=== PATIENT | male | born 1935 | race Caucasian/White ===

== ENCOUNTER 2023-05-08 12:18 | Emergency (ER) | payer SELFPAY ==
[2023-05-08 12:42] VITALS: BP 118/59; PULSE 92; RESP 14; TEMP 36.3; O2SAT 96
--- NOTE | 2023-05-08 14:45 | PC.NURSE ---
pt and family approached intake desk and states they do not want to wait any longer. pt made aware to return if they change their mind or have any new or worsening symptoms. pt ambulated out of ED with family without difficulty.
== END 2023-05-08 14:45 | disposition left against medical advice (07) ==
LOC: ANHED 15:10
DX: R20.0 Anesthesia of skin (principal)
CPT/HCPCS: 99199

== ENCOUNTER 2023-08-18 19:35 | Inpatient (IN) | payer MEDICARE, SELFPAY ==
--- NOTE | ~2023-08-18 | CT_ITS ---
EXAMINATION: CT cervical spine wo con DATE: 08/18/2023 21:17 INDICATION: Neck injury. Neck pain. TECHNIQUE: Computed tomography (CT) of the cervical spine was performed without intravenous contrast. Automated exposure control and iterative reconstruction technique were employed. The dose-length pro duct was 194.31 mGy-cm. COMPARISON: Cervical spine radiographs 08/18/2023 FINDINGS: There is mild scarring at the lung apices. There is 11 degrees levoscoliosis of cervical sp ine. Vertebral body heights are normal. There is severely decreased disc height at C3-C4 and moderate ly decreased disc height at C4-C5. There are bridging endplate osteophytes at C2-C3, C5-T1, and T2-T5 , consistent with diffuse idiopathic skeletal hyperostosis (DISH). The following disc levels are spec ifically discussed: C2-C3: There is mild bilateral uncovertebral joint hypertrophy. There is ankylosis of the facet joint s with mild left hypertrophy. There is mild left neural foraminal stenosis. There is no central canal stenosis. C3-C4: There is severe bilateral uncovertebral joint osteoarthritis. There is severe bilateral facet joint osteoarthritis. There is moderate bilateral neural foraminal stenosis. There is mild central ca nal stenosis. C4-C5: There is mild bilateral uncovertebral joint hypertrophy. There is severe bilateral facet joint osteoarthritis. There is mild right and mild left neural foraminal stenosis. There is mild central c anal stenosis. C5-C6: There is mild bilateral uncovertebral joint hypertrophy. There is mild bilateral facet joint h ypertrophy. There is mild bilateral neural foraminal stenosis. There is mild central canal stenosis. C6-C7: There is severe bilateral uncovertebral joint hypertrophy. There is mild bilateral facet joint hypertrophy. There is moderate bilateral neural foraminal stenosis. There is mild central canal sten osis. C7-T1: There is mild left uncovertebral joint hypertrophy. There is mild bilateral facet joint hypert rophy. There is mild bilateral neural foraminal stenosis. There is no central canal stenosis. IMPRESSION: 1. No fracture. 2. Severe cervical spondylosis. 3. DISH. Reviewed, dictated and finalized at location E. NG COILING MACHINE SETTER
--- NOTE | ~2023-08-18 | XR_ITS ---
EXAMINATION: XR knee LT 3V DATE: 08/18/2023 22:34 INDICATION: Left knee pain. Fall. TECHNIQUE: 3 views of left knee were obtained. COMPARISON: None. FINDINGS: Bone alignment is normal. No fracture. There is mild osteoarthritis of medial and patellofe moral compartments. No knee joint effusion. IMPRESSION: 1. Mild left knee osteoarthritis. Reviewed, dictated and finalized at location E. RAM ATTENDANT
--- NOTE | ~2023-08-18 | XR_ITS ---
EXAMINATION: XR chest 1V DATE: 08/18/2023 22:34 INDICATION: Weakness. TECHNIQUE: A single frontal view of the chest was obtained. COMPARISON: None. FINDINGS: There is mild atelectasis at left lung base. No pleural effusion or pneumothorax. The heart size is normal. IMPRESSION: 1. Mild atelectasis at left lung base. Reviewed, dictated and finalized at location E. ING INSPECTOR
--- NOTE | ~2023-08-18 | CT_ITS ---
EXAMINATION: CT brain wo con DATE: 08/18/2023 21:12 INDICATION: Head injury. TECHNIQUE: Computed tomography (CT) of the head was performed without intravenous contrast. The mA wa s adjusted according to patient size. Iterative reconstruction technique was employed. The dose-lengt h product was 605.33 mGy-cm. COMPARISON: None FINDINGS: There is no intracranial hemorrhage, acute infarction, or abnormal intracranial mass lesion . There are scattered areas of low attenuation in the cerebral white matter, which is within normal l imits for the patient's age. The ventricles are normal in size. There is mild mucosal thickening in t he ethmoid sinuses. There are likely changes of ocular lens replacement surgeries. The mastoid air ce lls are normal. IMPRESSION: 1. Normal aging brain. Reviewed, dictated and finalized at location E. OLOGY TECHNICIAN IMPRESSION: 1. Normal aging brain.
--- NOTE | ~2023-08-18 | XR_ITS ---
EXAMINATION: XR knee RT 3V DATE: 08/18/2023 22:34 INDICATION: Right knee pain. Fall. TECHNIQUE: 3 views of right knee were obtained. COMPARISON: None. FINDINGS: Bone alignment is normal. No fracture. There is mild tricompartmental osteoarthritis. No kn ee joint effusion. IMPRESSION: 1. Mild right knee osteoarthritis. Reviewed, dictated and finalized at location E. SCHOOL SUSPENSION AIDE
--- NOTE | ~2023-08-18 | XR_ITS ---
EXAMINATION: XR_CERV2-3V_CR DATE: 08/18/2023 20:42 INDICATION: Neck pain. Fall. TECHNIQUE: 4 views of cervical spine were obtained. COMPARISON: None. FINDINGS: There is 2 mm anterolisthesis of C4 on C5. Vertebral body heights are normal. There is like ly fusion of the facet joints at C2-C3. There is interbody fusion from C5 to C7. There is moderately decreased disc height at C3-C4 and C4-C5. There is severe facet joint osteoarthritis bilaterally at C 3-C4 and C4 on C5. Osseous central spinal canal is developmentally small. No prevertebral soft tissue swelling. IMPRESSION: 1. Moderate cervical spondylosis. 2. Interbody fusion from C5 to C7. Reviewed, dictated and finalized at location E. CER
[2023-08-18 19:50] VITALS: BP 127/64; PULSE 86; RESP 14; TEMP 36.3; O2SAT 98
--- NOTE | 2023-08-18 21:53 | PC.NURSE ---
ok to remove c-collar per Dr. Tellez. patient able to stand and ambulate short distance. c/o dipak knee pain d/t trying to get off the floor after falling.
--- NOTE | 2023-08-18 22:20 | ECG_ITS ---
Measurements Intervals [place] Rate: 73 P: 71 [place]: 189 QRS: 11 QRSD: 106 T: 73 QT: 388 QTc: 428 Interpretive Statements SINUS RHYTHM WITH OCCASIONAL SUPRAVENTRICULAR PREMATURE COMPLEXES BASELINE ARTIFACT RSR' V1 V2 BORDERLINE ECG NO PREVIOUS ECG AVAILABLE FOR COMPARISON Electronically Signed On 08-19-2023 15:40:02 FOOD SALES CLERK by Raúl Hill M.D.
[2023-08-18 22:56] LABS: Basophils Percent Auto 0.3 % (0.2-1.2); Hematocrit 34.4 % (42.0-52.0); Hemoglobin 11.1 g/dL (14.0-18.0); Immature Granulocyte Absolute 0.02 K/mm3 (0.00-0.031); Immature Granulocyte Percent A 0.3 % (0-0.5); Lymphocytes Absolute Auto 0.34 K/mm3 (0.9-3.2); Lymphocytes Percent Auto 4.6 % (18.3-44.2); Mean Corpuscular HGB Conc 32.3 g/dl (32-36); Mean Corpuscular Hemoglobin 29.4 pg (26-34); Mean Corpuscular Volume 91.2 fl (80-100); Mean Platelet Volume 9.5 fl (7.4-10.4); Monocytes Absolute Auto 0.6 K/mm3 (0.1-0.6); Monocytes Percent Auto 7.4 % (2.6-8.5); Neutrophils Absolute Auto 6.5 K/mm3 (1.3-6.7); Neutrophils Percent Auto 87.4 % (45.5-73.1); Platelet Count Result 161 k/mm3 (150-375); Red Blood Count 3.77 M/mm3 (4.6-6.20); Red Cell Distribution Width 13.4 % (11.5-14.5); White Blood Count 7.4 K/mm3 (4.5-10.0)
[2023-08-18 22:58] LABS: Appearance Urine Cloudy (Clear); Bacteria Urine None Seen /hpf; Bilirubin Urine Negative (Negative); Blood Urine 2+ (Negative); Color Urine Yellow (Yellow); Glucose Urine UA Negative (Negative); Ketones Urine Trace mg/dL (Negative); Leukocyte Esterase Ur 3+ LEU/UL (Negative); Nitrate Urine Negative (Negative); Non Pathogenic Casts 0-2; Protein Urine 1+ mg/dL (Negative); Specific Grav Ur 1.011 (1.001-1.035); Squamous Epithelial Cell Urine None seen /hpf (Few); Urobilinogen Urine 0.2 mg/dL (<2.0); WBC Urine >100 /hpf
[2023-08-18 23:08] LABS: Magnesium 2.3 mg/dL (1.6-2.3)
[2023-08-18 23:09] LABS: Add Urine Microscopic? YES
[2023-08-18 23:10] LABS: Alanine Aminotransferase 18 U/L (6-50); Albumin Level 3.8 g/dL (3.5-5.1); Alkaline Phosphatase 106 U/L (38-126); Anion Gap 9 mmol/L (8-16); Aspartate Amino Transferase 26 U/L (17-59); Bilirubin,Total 0.5 mg/dL (0.2-1.3); Blood Urea Nitrogen 35 mg/dL (9-20); Calcium 8.8 mg/dL (8.4-10.2); Carbon Dioxide 23 mmol/L (22-30); Chloride 96 mmol/L (98-107); Creatine Kinase 87 U/L (55-170); Estimated CRCL calculation 31 ml/min; Estimated Glomerular Filt Rate 48; Glucose 190 mg/dL (65-110); Lactic Acid Reflex 1.4 mmol/L (0.7-2.0); Potassium 4.4 mmol/L (3.4-5.0); Sodium 128 mmol/L (137-145)
[2023-08-18 23:28] LABS: Troponin I 0.164 ng/mL (0.000-0.034)
--- NOTE | 2023-08-18 23:37 | ED.GENADULT ---
HPI - General Adult General Chief complaint: Fall Stated complaint: glf Time Seen by Provider: 08/18/23 22:07 History of Present Illness HPI narrative: patient is a 87-year-old gentleman who presents emergency department with chief complaint of fall. The patient reports that today he was bending over chicken picker something fell backwards and landed on the ground the patient reports he was unable to get up on his own until his family managed to, and find him. Patient states that he has a little bit of discomfort in his knees did report that he hit his head and his neck the patient reports that he is not on blood thinners but does report that he has had 3 falls recently the patient reports that he has difficulty getting up after the falls Related Data Allergies Allergy/AdvReac Type Severity Reaction Status Date / Time No Known Allergies Allergy Verified 05/08/23 12:48 Review of Systems Review of Systems: A 10 system review of systems was completed on the patient and is negative except for what is stated in the HPI. Nursing and ancillary documentation was reviewed. Exam Narrative: GENERAL: Well-appearing, well-nourished, and in no acute distress. HEAD: Normocephalic, atraumatic. EYES: PERRLA and EOMI. ENT: Nares clear, no rhinorrhea or epistaxis. Mucous membranes moist. NECK: Supple. CHEST: Clear to auscultation. No respiratory distress. HEART: Regular rate and rhythm. No murmur heard. Normal peripheral pulses. ABDOMEN: Soft, nontender, nondistended, normal active bowel sounds. EXTREMITIES: Normal range of motion. No edema. abrasion present to the right knee SKIN: Warm, dry, no rash. NEURO: No focal deficits. Alert and oriented x3. PSYCH: Normal mood and affect. Course Vital Signs Vital signs: Vital Signs Temperature 36.3 C L 08/18/23 19:50 Pulse Rate 86 08/18/23 19:50 Respiratory Rate 14 08/18/23 19:50 Blood Pressure 127/64 08/18/23 19:50 Pulse Oximetry 98 08/18/23 19:50 Oxygen Delivery Room Air 08/18/23 19:50 Temperature 36.3 C L 08/18/23 19:50 Pulse Rate 86 08/18/23 19:50 Respiratory Rate 14 08/18/23 19:50 Blood Pressure 127/64 08/18/23 19:50 Pulse Oximetry 98 08/18/23 19:50 Oxygen Delivery Room Air 08/18/23 19:50 Medical Decision Making MDM Narrative Medical decision making narrative: differential diagnosis includes intracranial hemorrhage, cerebral contusion, cervical spine fracture CT head CT C-spine were obtained showed no evidence of intracranial hemorrhage or cervical spine fracture. Chest x-ray showed no focal infiltrate. Plain film x-rays of the knee showed no evidence of fracture. Laboratory studies were obtained which showed mildly elevated BUN and creatinine at 35 and 1.4 sodium was slightly low at 1.28 troponin was elevated at 0.164. Urinalysis showed evidence of UTI with greater than 100 white blood cells in the urine and 3+ leukocyte esterase given the elevated troponin UTI frequent falls and dehydration/ electrolyte abnormalities the case was discussed with the hospitalist the patient will be admitted for further care in the inpatient setting Vital Signs Vital Signs: Vital Signs Temperature 36.3 C L 08/18/23 19:50 Pulse Rate 86 08/18/23 19:50 Respiratory Rate 14 08/18/23 19:50 Blood Pressure 127/64 08/18/23 19:50 Pulse Oximetry 98 08/18/23 19:50 Oxygen Delivery Room Air 08/18/23 19:50 Temperature 36.3 C L 08/18/23 19:50 Pulse Rate 86 08/18/23 19:50 Respiratory Rate 14 08/18/23 19:50 Blood Pressure 127/64 08/18/23 19:50 Pulse Oximetry 98 08/18/23 19:50 Oxygen Delivery Room Air 08/18/23 19:50 Lab Data 08/18/23 22:41 08/18/23 22:41 Labs: Lab Results 08/18/23 08/18/23 Range/Units 22:41 22:48 WBC 7.4 (4.5-10.0) K/mm3 RBC 3.77 L (4.6-6.20) M/mm3 Hgb 11.1 L (14.0-18.0) g/dL Hct 34.4 L (42.0-52.0) % MCV 91.2 (80-100) fl MCH
[2023-08-19] VITALS (13 sets, daily range): BP systolic 110–146; BP diastolic 58–83; PULSE 69–91; RESP 16–22; TEMP 36.1–37.1; O2SAT 96–100; BMI 22.7
[2023-08-19] MEDS: SODIUM CHLORIDE 0.9% IV 1,000 ML 125 ML IV CONT ×3 (00:14→23:35)
[2023-08-19] MEDS: ASPIRIN 81 MG CHEWABLE TABLET 324 MG PO (00:14)
--- NOTE | 2023-08-19 02:35 | ECG_ITS ---
Measurements Intervals [place] Rate: 73 P: 60 [place]: 197 QRS: 17 QRSD: 106 T: 66 QT: 401 QTc: 445 Interpretive Statements SINUS RHYTHM WITH PREMATURE VENTRICULAR CONTRACTION RSR' V1 AND V2 NONSPECIFIC T-WAVE ABNORMALITY BORDERLINE ECG COMPARED TO ECG 08/18/2023 22:42:30 NO SIGNIFICANT CHANGES Electronically Signed On 08-19-2023 15:42:59 DIRECTOR ERP by Raúl Hill M.D.
[2023-08-19 03:37] LABS: Troponin I 0.427 ng/mL (0.000-0.034)
--- NOTE | 2023-08-19 03:41 | ADMGEN ---
This patient, Pankaj Carnes, was admitted to IMU Room 205-01. Patient/family oriented to hospital policies and general routines including ID bracelet, bed and alarms, visiting hours, pain management, procedures, bathroom and other care routines, personal items, smoking policy, room service/diet, and visiting hours. Information on how to activate the Rapid Response Team has been discussed. Patient/Family are encouraged to report perceived risks to care and to ask questions if they do not understand what they are told or what they should do.
[2023-08-19 06:44] LABS: Troponin I 0.487 ng/mL (0.000-0.034)
[2023-08-19] MEDS: ASPIRIN 81 MG CHEWABLE TABLET PO (08:24)
[2023-08-19 09:04] LABS: Hematocrit 34.9 % (42.0-52.0); Hemoglobin 11.6 g/dL (14.0-18.0); Mean Corpuscular HGB Conc 33.2 g/dl (32-36); Mean Corpuscular Hemoglobin 30.7 pg (26-34); Mean Corpuscular Volume 92.3 fl (80-100); Platelet Count Result 173 k/mm3 (150-375); Red Blood Count 3.78 M/mm3 (4.6-6.20); Red Cell Distribution Width 13.5 % (11.5-14.5); White Blood Count 5.7 K/mm3 (4.5-10.0)
[2023-08-19 09:10] LABS: Alanine Aminotransferase 17 U/L (6-50); Albumin Level 3.8 g/dL (3.5-5.1); Alkaline Phosphatase 102 U/L (38-126); Anion Gap 7 mmol/L (8-16); Aspartate Amino Transferase 30 U/L (17-59); Bilirubin,Total 0.4 mg/dL (0.2-1.3); Blood Urea Nitrogen 30 mg/dL (9-20); Calcium 8.8 mg/dL (8.4-10.2); Carbon Dioxide 22 mmol/L (22-30); Chloride 105 mmol/L (98-107); Estimated CRCL calculation 32 ml/min; Estimated Glomerular Filt Rate 52; Glucose 85 mg/dL (65-110); Sodium 134 mmol/L (137-145)
[2023-08-19 10:22] LABS: Troponin I 0.452 ng/mL (0.000-0.034)
--- NOTE | 2023-08-19 12:17 | PM.IMHP ---
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 Patient presented to the ED on 08/18/2023 due to a fall at home. Patient has had a couple falls in the last couple months and states that it is due to him losing his balance. Patient had dropped a piece of food on the floor while he was trying to pick it up he had lost his balance and fell backward. While trying to get up he did scrape up his right knee. Other than right knee pain he denies chest pain, shortness a breath, lightheadedness, dizziness, visual changes, dysuria. Imaging in the ED did not reveal any signs of fracture. He did hit his head during the fall and CT of the head negative for acute bleed or stroke. He does live alone home and is fairly independent. He was found to have urine suspicious for infection and was started on antibiotics. Patient also was found to have an elevated troponin. Cardiology consulted for further evaluation. [facility] Past Medical History Medical History (Updated 08/19/23 @ 12:23 by Krupa Ruiz PA-C) Bladder cancer BPH (benign prostatic hyperplasia) CKD (chronic kidney disease) Diabetes mellitus History of myocardial infarction Hypertension Family History Family History (Updated 08/19/23 @ 03:57 by Marcus Ribera RN) Mother Congestive heart failure Father Esophageal cancer Social History Social History Smoking packs per day: 1 Smoking cigarettes per day: 20.0 Years smoked: 20 Smoking pack-years: 20.00 Smoking status: Former smoker Alcohol intake: never Substance use: never Do You Feel Safe in your Home?: Yes Lack of Transportation: No Lack of Food: Never True Current Housing: I Have Housing Concerned About Future Housing: No Difficulty Paying Gas/Electric Bills: No Difficulty Paying for Meds: No Currently Unemployed: No Education: Grade School Difficulty w/ Childcare or Family Care: No Spiritual care concerns: No Meds Home Medications and Allergies Allergies Allergy/AdvReac Type Severity Reaction Status Date / Time No Known Allergies Allergy Verified 05/08/23 12:48 Vital Signs Vital Signs - 24 hr 08/18/23 19:50 08/19/23 00:18 08/19/23 02:19 Temperature 97.3 F L Pulse Rate 86 76 72 Respiratory Rate 14 16 16 Blood Pressure 127/64 134/78 110/58 L Pulse Oximetry 98 99 98 Oxygen Delivery Room Air 08/19/23 03:48 08/19/23 04:00 08/19/23 04:00 Temperature 97.0 F L Pulse Rate 75 75 69 Respiratory Rate 16 16 Blood Pressure 146/73 H Pulse Oximetry 100 100 Oxygen Delivery Room Air 08/19/23 06:00 08/19/23 08:00 08/19/23 08:00 Temperature 97.4 F L Pulse Rate 90 83 82 Respiratory Rate 18 Blood Pressure 139/80 Pulse Oximetry 96 Oxygen Delivery 08/19/23 08:00 08/19/23 10:00 Temperature Pulse Rate 83 91 Respiratory Rate 18 Blood Pressure Pulse Oximetry 96 Oxygen Delivery Room Air H&P: Results Labs Labs: Short CBC 08/18/23 08/19/23 Range/Units 22:41 06:06 WBC 7.4 5.7 (4.5-10.0) K/mm3 Hgb 11.1 L 11.6 L (14.0-18.0) g/dL Hct 34.4 L 34.9 L (42.0-52.0) % Plt Count 161 173 (150-375) k/mm3 BMP 08/18/23 08/19/23 22:41 06:03 Sodium 128 L 134 L Potassium 4.4 4.0 Chloride 96 L 105 Carbon Dioxide 23 22 BUN 35 H 30 H Creatinine 1.40 H 1.30 Glucose 190 H 85 Calcium 8.8 8.8 Cardiac Enzymes 08/18/23 08/19/23 08/19/23 Range/Units 22:41 03:07 06:06 Total Creatine Kinase 87 (55-170) U/L Troponin I 0.164 H* 0.427 H* D 0.487 H* (0.000-0.034) ng/mL 08/19/23 Range/Units 09:47 Total Creatine Kinase (55-17
--- NOTE | 2023-08-19 13:02 | ECHO_ITS ---
Patient Info Name: Pankaj Carnes Age: 87 years : 1935 Gender: Male Ht: 67 in Wt: 143 lbs BSA: 1.75 m2 HR: 77 bpm BP: 136 / 72 mmHg Heart Rhythm: Sinus Rhythm Technical Quality: Good Exam Date: 08/19/2023 1:28 PM Exam Location: Echo Lab Patient Status: Inpatient Admit Date: 08/19/2023 Staff Ordering Physician: Raúl Hill MD [employer] Coating Supervisor: Annalee Navarro RDCS Attending Provider: Maryam Otero MD Referring Physician: Liz ROSS; Exam Type: CA echo doppler color flow Study Info Indications - elevated troponin, hx of cad, falls Complete two-dimensional, color flow and Doppler transthoracic echocardiogram is performed. Summary 1. Complete two-dimensional, color flow and Doppler transthoracic echocardiogram is performed. 2. Left ventricular chamber dimension is normal. 3. Left ventricular systolic function is mildly to moderately reduced, estimated at 40-45%. Hypokinesis of the inferolateral james, mid anterolateral, and mid and basal inferior wall. 4. There is mildly increased left ventricular wall thickness. 5. The left ventricular diastolic function is grade I diastolic dysfunction. 6. Left atrial chamber dimension is mildly enlarged. 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 Appearance is not suggestive vegetation, mass, or thrombus. 7. There is mild aortic valve stenosis with a peak velocity of 120 cm/s, mean gradient of 3 mmHg, and aortic valve area of 1.7 cm2. 8. There is mild aortic valve regurgitation. 9. The aortic valve is probable trileaflet. Left Ventricle Left ventricular chamber dimension is normal. Left ventricular systolic function is mildly to moderately reduced, estimated at 40-45%. Hypokinesis of the inferolateral james, mid anterolateral, and mid and basal inferior wall. There is mildly increased left ventricular wall thickness. The left ventricular diastolic function is grade I diastolic dysfunction. Right Ventricle Right ventricular chamber dimension is normal. Right ventricular systolic function is normal. Left Atria Left atrial chamber dimension is mildly enlarged. 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 Appearance is not suggestive vegetation, mass, or thrombus. Right Atria Right atrial chamber dimension is mildly enlarged. Aortic Valve The aortic valve is probable trileaflet. There is mild aortic valve sclerosis. There is mild aortic valve stenosis with a peak velocity of 120 cm/s, mean gradient of 3 mmHg, and aortic valve area of 1.7 cm2. There is mild aortic valve regurgitation. Pulmonic Valve The pulmonic valve is not well visualized. There is trace pulmonic regurgitation. Mitral Valve The mitral valve has thickened leaflets. There is trace mitral valve regurgitation. The mitral valve annulus is mildly calcified. Tricuspid Valve The tricuspid valve leaflets are normal. There is mild tricuspid valve regurgitation. No pulmonary hypertension, estimated pulmonary arterial systolic pressure is 34 mmHg. Pericardium/Pleural The pericardium appears normal. There is trivial pericardial effusion. Aorta The aortic root size at the sinus of Valsalva is normal. The prox ascending aorta size is normal. There is mild aortic atherosclerosis. Left Ventricular Outflow Tract Name Va
--- NOTE | 2023-08-19 13:02 | PM.CNCAR ---
Assessment and Plan Assessment and plan (1) Elevated troponin: Code(s): R79.89 - Other specified abnormal findings of blood chemistry Status: Acute Assessment and Plan: Mild troponin elevation most recently fairly flat without anginal symptoms most likely consistent with a type 2 infarction not acute coronary syndrome and/or plaque rupture. Patient reports history of underlying CAD but is not endorsing progressive anginal symptoms although this cannot be entirely excluded given progressive fatigue. Nonetheless, we discussed at great length patient and family at bedside it is including his daughter and granddaughter conservative medical management versus more in-depth or invasive workup. Given his DNR status, advanced age in history they are not interested in pursuing additional invasive testing. I do not recommend ischemic workup given this in order to monitor his wishes nor is he having symptoms concerning in this regard. We did discussed and agreed upon 2D echocardiogram to assess LV function, wall motion abnormalities for clarification with regard to clinical status with potential corroborating evidence as to the explanation for his elevated troponin. Nonetheless, there has not been significant documented hypotension, hypoxia tachy bradyarrhythmia as explanation for elevated troponin. Although given his advanced age, immune compromised status with bladder cancer status post chemotherapy and radiation he is at increased risk for thromboembolic complications there is no clinical evidence suggestive this given lack of hypoxia or significant or unequal lower extremity edema or discomfort. His troponin elevation may be complication of LV dysfunction if documented underlying renal insufficiency. There are no other signs or symptoms suggestive acute pericardial or myopericardial inflammatory process at this time. Further recommendation to follow after review of echocardiogram otherwise no other plans for invasive workup. As we discussed at length, even if his presentation with elevated troponins consistent with acute coronary syndrome (clinically it is not) they would not desire invasive management. DVT prophylaxis. Monitor renal function electrolytes. (2) CAD (coronary artery disease): Code(s): I25.10 - Atherosclerotic heart disease of unga coronary artery without angina pectoris Status: Acute Assessment and Plan: Aggressive medical therapy. Continue aspirin 81 mg daily, simvastatin 20 mg daily. ECG without acute ischemic changes. Patient is not endorsing anginal symptoms with significant exertional dyspnea and/or chest pain. Review prior cardiovascular records. He reports a prior history of CAD on [facility] over 20 years ago and is followed by Dr. Mccoy of [facility]. Overall, I recommend conservative medical management to which patient and his family also desired. (3) Falls frequently: Code(s): R29.6 - Repeated falls Status: Acute Assessment and Plan: Patient presents with loss of balance without loss of consciousness. Check orthostatic vital signs. No evidence for clear tachy or Sarthak contribution at this time. Continue telemetry for now. (4) CKD (chronic kidney disease): Code(s): N18.9 - Chronic kidney disease, unspecified Status: Acute Assessment and Plan: Patient and family reported history of underlying renal insufficiency. Dimensions suggestion of hydronephrosis which he has 1 functional kidney. Reviewed prior labs clarification degree of baseline underlying renal insufficiency. Patient is eating and drinking well. Suspect will be able to reduce and or discontinue IV fluids. (5) Acute UTI: Code(s): N39.0 - Urinary tract infection, site not specified Status: Acute Assessment and Plan: Management per primary service on ceftriaxone at this time. Cultures pending. (6) Hypertension: Code(s): I10 - Essential (primary) hypertension
[2023-08-19 13:05] LABS: Glucose Point of Care 209 mg/dl (65-105)
[2023-08-19 17:13] LABS: Glucose Point of Care 147 mg/dl (65-105)
[2023-08-19 21:09] LABS: Glucose Point of Care 109 mg/dl (65-105)
[2023-08-20] VITALS (9 sets, daily range): BP systolic 138–148; BP diastolic 70–73; PULSE 70–160; RESP 16–20; TEMP 36.8–37.1; O2SAT 95–100
[2023-08-20] MEDS: TOLTERODINE TARTRATE 2 MG TABLET PO (01:25)
[2023-08-20 04:03] LABS: Hematocrit 34.6 % (42.0-52.0); Hemoglobin 11.2 g/dL (14.0-18.0); Mean Corpuscular HGB Conc 32.4 g/dl (32-36); Mean Corpuscular Hemoglobin 29.3 pg (26-34); Mean Corpuscular Volume 90.6 fl (80-100); Mean Platelet Volume 10.2 fl (7.4-10.4); Platelet Count Result 151 k/mm3 (150-375); Red Blood Count 3.82 M/mm3 (4.6-6.20); Red Cell Distribution Width 13.4 % (11.5-14.5); White Blood Count 6.9 K/mm3 (4.5-10.0)
[2023-08-20 04:13] LABS: Alanine Aminotransferase 15 U/L (6-50); Albumin Level 3.5 g/dL (3.5-5.1); Alkaline Phosphatase 95 U/L (38-126); Anion Gap 6 mmol/L (8-16); Aspartate Amino Transferase 29 U/L (17-59); Bilirubin,Total 0.4 mg/dL (0.2-1.3); Blood Urea Nitrogen 29 mg/dL (9-20); Calcium 8.4 mg/dL (8.4-10.2); Carbon Dioxide 21 mmol/L (22-30); Chloride 103 mmol/L (98-107); Estimated CRCL calculation 30 ml/min; Estimated Glomerular Filt Rate 48; Glucose 114 mg/dL (65-110); Sodium 130 mmol/L (137-145)
[2023-08-20] MEDS: ASPIRIN 81 MG CHEWABLE TABLET PO ×2 (08:24→09:33)
[2023-08-20 08:26] LABS: Glucose Point of Care 177 mg/dl (65-105)
[2023-08-20] MEDS: DOCUSATE SODIUM 100 MG CAPSULE PO (09:35)
[2023-08-20] MEDS: glipiZIDE XL 5 MG TABCR 10 MG PO (09:35)
[2023-08-20 11:39] LABS: Glucose Point of Care 197 mg/dl (65-105)
--- NOTE | 2023-08-20 13:59 | PM.PNCARD ---
Progress Note: A&P Assessment and Plan (1) Elevated troponin: Code(s): R79.89 - Other specified abnormal findings of blood chemistry Status: Acute Assessment and Plan: Mild troponin elevation most recently fairly flat without anginal symptoms most likely consistent with a type 2 infarction not acute coronary syndrome and/or plaque rupture. No invasive ischemic evaluation or any further cardiac workup recommended at this time. Echo showed mildly reduced LVSF with EF 40 - 45% with hypokinesis of the inferolateral, mid anterolateral, and mid and basal inferior james. Outpatient follow up already scheduled with Dr. Mccoy. (2) CAD (coronary artery disease): Code(s): I25.10 - Atherosclerotic heart disease of [place] coronary artery without angina pectoris Status: Acute Assessment and Plan: Aggressive medical therapy. Continue aspirin 81 mg daily, simvastatin 20 mg daily. ECG without acute ischemic changes. Patient is not endorsing anginal symptoms with significant exertional dyspnea and/or chest pain. He reports a prior history of CAD on [facility] over 20 years ago and is followed by Dr. Mccoy of [facility]. (3) Falls frequently: Code(s): R29.6 - Repeated falls Status: Acute Assessment and Plan: Patient presents with loss of balance without loss of consciousness. Check orthostatic vital signs. No evidence for clear tachy or Sarthak contribution at this time. Continue telemetry for now. (4) CKD (chronic kidney disease): Code(s): N18.9 - Chronic kidney disease, unspecified Status: Acute (5) Acute UTI: Code(s): N39.0 - Urinary tract infection, site not specified Status: Acute Assessment and Plan: Management per primary service (6) Hypertension: Code(s): I10 - Essential (primary) hypertension Status: Acute Assessment and Plan: BP stable. Avoid hypotension. Check orthostatic vital signs given recurrent falls and reported progressive weakness prior to admission. (7) Diabetes mellitus: Code(s): E11.9 - Type 2 diabetes mellitus without complications Status: Acute Assessment and Plan: Management per primary service. (8) Bladder cancer: Code(s): C67.9 - Malignant neoplasm of bladder, unspecified Status: Acute Plan Cardiology will sign off please call with questions. Subjective Date/time seen: 08/20/23 13:59 Interval history: Cardiology follow up for elevated troponin Feeling well today. Denies any chest pain. Review of Systems Review of Systems: Remainder of the review of systems is otherwise negative aside from that noted in the HPI. All systems reviewed & are unremarkable except as noted in HPI and below Constitutional: Constitutional: Reports as per HPI and Reports no additional constitutional complaints Eyes: Eyes: Reports as per HPI and Reports no additional eye complaints ENT: Reports system reviewed and no additional complaints, except as documented and Reports as per HPI Cardiovascular: Cardiovascular: Reports as per HPI and Reports no additional cardiovascular complaints Respiratory: Respiratory: Reports as per HPI and Reports no additional respiratory complaints Gastrointestinal: Gastrointestinal: Reports as per HPI and Reports no additional gastrointestinal complaints Genitourinary: Genitourinary: Reports no additional male genitourinary complaints and Reports as per HPI Musculoskeletal: Musculoskeletal: Reports no additional musculoskeletal complaints and Reports as per HPI Integumentary/Breasts: Skin/Breast: Reports system reviewed and no additional complaints, except as docu and Reports as per HPI Neurologic: Reports system reviewed and no additional complaints, except as documented and Reports as per HPI Psychiatric: Psychiatric: Reports no additional psychiatric complaints and Reports as per HPI Endocrine: Endocrine: Reports no additiona
--- NOTE | 2023-08-20 15:22 | ECG_ITS ---
Measurements Intervals [place] Rate: 113 P: [place]: 0 QRS: 22 QRSD: 95 T: 115 QT: 317 QTc: 435 Interpretive Statements ATRIAL FLUTTER/TACHYCARDIA WITH RAPID VENTRICULAR RESPONSE LOW-VOLTAGE NONSPECIFIC T-WAVE ABNORMALITY ABNORMAL ECG COMPARED TO ECG 08/19/2023 03:13:39 ATRIAL FLUTTER REPLACES SINUS RHYTHM Electronically Signed On 08-20-2023 18:09:15 REELING MACHINE OPERATOR by Wesly Dunn M.D.
--- NOTE | 2023-08-20 15:42 | PM.IMPN ---
Progress Note: A&P Assessment and Plan (1) Acute UTI: Code(s): N39.0 - Urinary tract infection, site not specified Status: Acute Assessment and Plan: patient found to have 3+ leukocyte esterase, 11-20 rbc's, greater than 100 wbc's. Urine culture no growth. Rocephin discontinued. (2) Kclid-fn-ecviwmu kidney injury: Code(s): N17.9 - Acute kidney failure, unspecified; N18.9 - Chronic kidney disease, unspecified Status: Acute Assessment and Plan: Patient presented with a BUN creatinine of 35/1.4 He does have a history of kidney disease secondary to bladder cancer. Continue IV fluids. (3) Elevated troponin: Code(s): R79.89 - Other specified abnormal findings of blood chemistry Status: Acute Assessment and Plan: Troponin elevated at 0.164, 0.427, 0.487 He does have a history [place] approximately 20 years ago. 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 Cardiology consulted. Echo showing EF of 40-45% grade 1 diastolic dysfunction, mild aortic stenosis and regurg. Cardiology discharging from service at this time. (4) Falls frequently: Code(s): R29.6 - Repeated falls Status: Acute Assessment and Plan: PT and OT consulted. (5) Diabetes mellitus: Code(s): E11.9 - Type 2 diabetes mellitus without complications Status: Acute Assessment and Plan: Insulin Lispro sliding scale, Accu-checks qAc and HS and Hold oral hypoglycemics Initiate hypoglycemic precautions (6) Hypertension: Code(s): I10 - Essential (primary) hypertension Status: Acute Assessment and Plan: Continue home once Meds are reconciled by nursing. Subjective Date/time seen: 08/20/23 15:42 Interval history: Patient doing well today and has no complaints at this time. Patient's urine culture came back as no growth and his antibiotics was discontinued. PT and OT working with patient. Cardiology has discharge patient from their service. Called patient's daughter to discuss possible discharge and family does not feel comfortable taking him home at this time. Care coordination made aware of this. Exam Narrative: GENERAL: Comfortable, no acute distress HENMT: moist mucous membranes EYES: EOM intact b/l NECK: no lymphadenopathy RESPIRATORY: clear to auscultation CARDIO: RRR GI: soft, nontender, bowel sounds present SKIN: no rashes EXTREMITIES: no edema, redness or tenderness Objective Data Vital Signs Vital Signs: Vital Signs - 24 hr 08/19/23 16:00 08/19/23 16:00 08/19/23 16:09 Temperature Pulse Rate 72 84 Respiratory Rate 22 H Blood Pressure Pulse Oximetry 98 Oxygen Delivery Room Air Room Air 08/19/23 16:00 08/19/23 17:14 08/19/23 20:00 Temperature 97.6 F 97.6 F 98.2 F Pulse Rate 73 73 85 Respiratory Rate 18 18 18 Blood Pressure 145/83 H 145/83 H 137/68 Pulse Oximetry 99 99 97 Oxygen Delivery 08/19/23 20:00 08/19/23 20:00 08/19/23 23:35 Temperature 97 F L Pulse Rate 85 86 84 Respiratory Rate 18 18 Blood Pressure 140/79 Pulse Oximetry 97 97 Oxygen Delivery Room Air 08/20/23 00:00 08/20/23 04:00 08/20/23 04:00 Temperature 98.2 F Pulse Rate 83 97 82 Respiratory Rate 20 Blood Pressure 138/70 Pulse Oximetry 95 Oxygen Delivery 08/20/23 09:15 08/20/23 08:00 08/20/23 08:00 Temperature 98.7 F Pulse Rate 70 75 70 Respiratory Rate 16 16 Blood Pressure 148/73 H Pulse Oximetry 100 100 Oxygen Delivery Room Air 08/20/23 10:50 08/20/23 12:00 Temperature Pulse Rate 97 Respiratory Rate Blood Pressure Pulse Oximetry Oxygen Delivery Room Air Intake/Output Intake/Output: Intake & Output 08/17/23 08/18/23 08/19/23 08/20/23 23:59 23:59 23:59 23:59 Intake Total 3210 1010 Output Total 2850 350 Balance 360 660 Meds/Results Medications: Active Medications Gener
[2023-08-20] MEDS: METOPROLOL TARTRATE INJ 5 MG/5 ML VIAL IV PUSH (15:49)
[2023-08-20 16:45] LABS: Glucose Point of Care 126 mg/dl (65-105)
[2023-08-20] MEDS: ramipriL 5 MG CAPSULE 10 MG PO (20:26)
[2023-08-20] MEDS: SIMVASTATIN 20 MG TABLET PO (20:27)
[2023-08-20] MEDS: NIFEdipine 30 MG TAB.ER.24 PO (20:27)
[2023-08-20 20:40] LABS: Glucose Point of Care 164 mg/dl (65-105)
[2023-08-21] VITALS (9 sets, daily range): BP systolic 112–123; BP diastolic 49–69; PULSE 75–125; RESP 15–18; TEMP 36.5–36.8; O2SAT 98–100
[2023-08-21 08:26] LABS: Glucose Point of Care 112 mg/dl (65-105)
[2023-08-21] MEDS: glipiZIDE XL 5 MG TABCR 10 MG PO (09:36)
[2023-08-21] MEDS: DOCUSATE SODIUM 100 MG CAPSULE PO (09:36)
[2023-08-21] MEDS: ASPIRIN 81 MG CHEWABLE TABLET PO (09:38)
[2023-08-21 12:16] LABS: Glucose Point of Care 133 mg/dl (65-105)
--- NOTE | 2023-08-21 14:51 | PM.IMPN ---
Progress Note: A&P Assessment and Plan (1) Acute UTI: Code(s): N39.0 - Urinary tract infection, site not specified Status: Acute Assessment and Plan: patient found to have 3+ leukocyte esterase, 11-20 rbc's, greater than 100 wbc's. Urine culture no growth. Rocephin discontinued. (2) Jopyd-ro-rpwopbi kidney injury: Code(s): N17.9 - Acute kidney failure, unspecified; N18.9 - Chronic kidney disease, unspecified Status: Acute Assessment and Plan: Patient presented with a BUN creatinine of 35/1.4 He does have a history of kidney disease secondary to bladder cancer. (3) Elevated troponin: Code(s): R79.89 - Other specified abnormal findings of blood chemistry Status: Acute Assessment and Plan: Troponin elevated at 0.164, 0.427, 0.487 He does have a history [place] approximately 20 years ago. Has appointment with his vice president commercial bank in 2 weeks. Cardiology consulted. Echo showing EF of 40-45% grade 1 diastolic dysfunction, mild aortic stenosis and regurg. Cardiology discharging from service at this time. (4) Falls frequently: Code(s): R29.6 - Repeated falls Status: Acute Assessment and Plan: PT and OT consulted. (5) Diabetes mellitus: Code(s): E11.9 - Type 2 diabetes mellitus without complications Status: Acute Assessment and Plan: Insulin Lispro sliding scale, Accu-checks qAc and HS and Hold oral hypoglycemics Initiate hypoglycemic precautions (6) Hypertension: Code(s): I10 - Essential (primary) hypertension Status: Acute Assessment and Plan: Continue home once Meds are reconciled by nursing. Subjective Date/time seen: 08/21/23 14:51 Interval history: Patient waiting on placement consistent Exam Narrative: GENERAL: Comfortable, no acute distress HENMT: moist mucous membranes EYES: EOM intact b/l NECK: no lymphadenopathy RESPIRATORY: clear to auscultation CARDIO: RRR GI: soft, nontender, bowel sounds present SKIN: no rashes EXTREMITIES: no edema, redness or tenderness Objective Data Vital Signs Vital Signs: Vital Signs - 24 hr 08/20/23 15:49 08/20/23 16:00 08/20/23 16:00 Temperature Pulse Rate 160 H 97 86 Respiratory Rate Blood Pressure Pulse Oximetry Oxygen Delivery 08/20/23 17:00 08/20/23 20:00 08/20/23 20:00 Temperature 98.7 F Pulse Rate 90 90 73 Respiratory Rate 20 20 Blood Pressure 138/72 Pulse Oximetry 99 99 Oxygen Delivery Room Air 08/21/23 00:00 08/21/23 04:00 08/21/23 07:50 Temperature 98.3 F Pulse Rate 81 75 93 Respiratory Rate 18 Blood Pressure 116/49 L Pulse Oximetry 98 Oxygen Delivery Intake/Output Intake/Output: Intake & Output 08/18/23 08/19/23 08/20/23 08/21/23 23:59 23:59 23:59 23:59 Intake Total 3210 1350 830 Output Total 2850 1850 450 Balance 360 -500 380 Meds/Results Medications: Active Medications Generic Name Dose Route Start Last Admin Trade Name Freq PRN Reason Stop Dose Admin Alfuzosin HCl 10 mg 08/20/23 18:00 08/20/23 17:26 Alfuzosin 10 Mg Er Tablet PO 10 mg EVENING NICKI Administration Aspirin 81 mg 08/20/23 09:00 08/21/23 09:38 Aspirin 81 Mg Chewable Tablet PO 81 mg DAILY NICKI Administration Dextrose 12.5 gm 08/19/23 12:26 Dextrose 50% 25 Gm/50 Ml Syringe IV PUSH PRN PRN Hypoglycemia Protocol Docusate Sodium 100 mg 08/20/23 09:00 08/21/23 09:36 Docusate Sodium 100 Mg Capsule PO 100 mg DAILY NICKI Administration Gabapentin 100 mg 08/20/23 09:00 Gabapentin 100 Mg Capsule PO DAILY NICKI Glipizide 10 mg 08/20/23 09:00 08/21/23 09:36 Glipizide Xl 5 Mg Tabcr PO 10 mg DAILY NICKI Administration Glucagon 1 mg 08/19/23 12:26 Glucagon For Inj 1 Mg Vial IM PRN PRN Hypoglycemia Protocol Glucose 15 gm 08/19/23 12:26 Gl
[2023-08-21 17:40] LABS: Glucose Point of Care 118 mg/dl (65-105)
--- NOTE | 2023-08-21 18:17 | PC.NURSE ---
This patient, Pankaj Carnes, was transferred to [facility] on 08/21/23 at 1818. Personal belongings sent with patient. Report given to Jacquelyn ARREOLA. Appropriate documentation sent with patient.
--- NOTE | 2023-08-21 20:19 | ECG_ITS ---
Measurements Intervals [place] Rate: 109 P: [place]: 0 QRS: 29 QRSD: 98 T: 105 QT: 319 QTc: 430 Interpretive Statements ATRIAL FIBRILLATION WITH RAPID VENTRICULAR RESPONSE ABNORMAL QRS-T ANGLE [QRS-T AXIS DIFFERENCE > 60] WARNING: DATA QUALITY MAY AFFECT INTERPRETATION COMPARED TO ECG 08/20/2023 15:31:10 ATRIAL FIBRILLATION NOW PRESENT Electronically Signed On 08-22-2023 9:01:58 DRILL INSTRUCTOR by Rosalia Murray M.D.
--- NOTE | 2023-08-21 20:57 | PC.NURSE ---
RN noticed patients Tele monitor showing results spiking into the 170's. 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 At this time there was a standing order for Stat EKG. Order placed and awaiting results, Primary RN made aware and will follow up with MD.
[2023-08-21] MEDS: NIFEdipine 30 MG TAB.ER.24 PO (21:25)
[2023-08-21] MEDS: ramipriL 5 MG CAPSULE 10 MG PO (21:26)
[2023-08-21] MEDS: SIMVASTATIN 20 MG TABLET PO (21:26)
[2023-08-21] MEDS: INSULIN ASPART (*BKC) 100 UNITS/ML SUB-Q (21:33)
[2023-08-21 21:56] LABS: Glucose Point of Care 227 mg/dl (65-105)
[2023-08-21] MEDS: dilTIAZem HCl INJ 25 MG/5 ML VIAL 10 MG IV PUSH (22:28)
[2023-08-22] VITALS: PULSE 75
[2023-08-22 03:57] VITALS: BP 124/47; PULSE 86; RESP 19; TEMP 36.6; O2SAT 96
[2023-08-22 04:00] VITALS: PULSE 90
--- NOTE | 2023-08-22 07:55 | PM.DS ---
DS: Admitting Diagnosis Discharge Date 08/22/23 Admitting Diagnosis fall, UTI, elevated troponins DS: Discharge Diagnosis Discharge Diagnosis (1) Acute UTI: Code(s): N39.0 - Urinary tract infection, site not specified Status: Acute (2) Joyhz-vn-nzyqgvy kidney injury: Code(s): N17.9 - Acute kidney failure, unspecified; N18.9 - Chronic kidney disease, unspecified Status: Acute (3) Elevated troponin: Code(s): R79.89 - Other specified abnormal findings of blood chemistry Status: Acute (4) Falls frequently: Code(s): R29.6 - Repeated falls Status: Acute (5) Diabetes mellitus: Code(s): E11.9 - Type 2 diabetes mellitus without complications Status: Acute (6) Hypertension: Code(s): I10 - Essential (primary) hypertension Status: Acute DS: Summary Hospital Course Hospital Course: This is a 87-year-old male with a past medical history of bladder cancer currently undergoing treatment, kidney disease due to bladder cancer, diabetes, hypertension, hyperlipidemia, BPH, history of CA with cardiac catheter happening 20 years ago.? Patient presented to the ED on 08/18/2023 due to a fall at home.? Patient has had a couple falls in the last couple months and states that it is due to him losing his balance.? Patient had dropped a piece of food on the floor while he was trying to pick it up he had lost his balance and fell backward.? While trying to get up he did scrape up his right knee.? ? Other than right knee pain he denies chest pain, shortness a breath, lightheadedness, dizziness, visual changes, dysuria.? Imaging in the ED did not reveal any signs of fracture.? He did hit his head during the fall and CT of the head negative for acute bleed or stroke.? He does live alone home and is fairly independent. He is on a wait list to get into an assisted living.? He was found to have urine suspicious for infection and was started on antibiotics.? Urine came back with no growth and antibiotics were discontinued at that time. Patient also was found to have an elevated troponin.? Cardiology consulted for further evaluation. cardiology recommending echocardiogram which is unchanged from patient's baseline. They are not advising any further workup at this time. Min follow-up with his Cardiology as an outpatient. Labs and vital signs are stable and he is medically cleared for discharge at this time. Patient discharged to SNF. Time Spent with Patient Time attestation: Total time spent providing and/or coordinating discharge services: Exam Narrative: GENERAL: Comfortable, no acute distress HENMT: moist mucous membranes EYES: EOM intact b/l NECK: no lymphadenopathy RESPIRATORY: clear to auscultation CARDIO: RRR GI: soft, nontender, bowel sounds present SKIN: no rashes EXTREMITIES: no edema, redness or tenderness DS: Data Data Completed and Pending Labs on day of discharge: Labs from last 24 hours 08/21/23 08/21/23 08/21/23 21:31 16:48 11:51 POC Capillary Glucose 227 H 118 H 133 H 08/21/23 07:56 POC Capillary Glucose 112 H Discharge Plan Discharge Attending physician on discharge: Jose Lr Consulting providers: Raúl Hill Discharging Clinician: Krupa Ruiz Patient Disposition: SNF Activity: as tolerated Diet: heart healthy Discharge Instructions: Discharge disposition: Take medications as prescribed Monitor blood pressures Avoid social areas, you wear a mask when in social settings Encouraged to continue with yearly vaccinations Return to the emergency department if he developed sudden shortness of breath, chest pain, nausea, vomiting, upset stomach or intractable diarrhea Return to the emergency department if you develop fever greater than 100.4 Follow-up with the primary care physician within 1-2 weeks Thank you for choosing [facility] for your healthcare needs Stand Alone Forms: General Dis
[2023-08-22 08:00] VITALS: PULSE 120
[2023-08-22] MEDS: DOCUSATE SODIUM 100 MG CAPSULE PO (08:42)
[2023-08-22] MEDS: ASPIRIN 81 MG CHEWABLE TABLET PO (08:42)
[2023-08-22] MEDS: glipiZIDE XL 5 MG TABCR 10 MG PO (08:42)
[2023-08-22 08:58] LABS: Glucose Point of Care 131 mg/dl (65-105)
--- NOTE | 2023-08-22 11:09 | PC.NURSE ---
RN called to give report to nurse taking patient at [facility]. No answer. RN left voicemail.
[2023-08-22 11:52] LABS: SARS-CoV-2 RNA PCR Negative (Negative)
== END 2023-08-22 11:25 | DRG 682 ==
LOC: ANHED 23:44 → ANHIMU 23:57 → ANH3MED 08-21 18:43
PROVIDERS: Admitting Provider Internal Medicine; Emergency Provider Emergency Medicine; PCP Internal Medicine; Visit Provider Internal Medicine Critical Care Medicine
DX: N17.9 Acute kidney failure, unspecified (principal); I21.A1 Myocardial infarction type 2; N39.0 Urinary tract infection, site not specified; I12.9 Hypertensive chronic kidney disease with stage 1 through stage 4 chronic kidney disease, or unspecified chronic kidney disease; N18.9 Chronic kidney disease, unspecified; C67.9 Malignant neoplasm of bladder, unspecified; E86.0 Dehydration; E11.22 Type 2 diabetes mellitus with diabetic chronic kidney disease; E78.5 Hyperlipidemia, unspecified; N40.0 Benign prostatic hyperplasia without lower urinary tract symptoms; R79.89 Other specified abnormal findings of blood chemistry; R29.6 Repeated falls; I25.2 Old myocardial infarction; Z11.52 Encounter for screening for COVID-19; Z87.891 Personal history of nicotine dependence; Z79.82 Long term (current) use of aspirin
CPT/HCPCS: 36415; 70450; 71045; 72040; 72125; 73562; 80053; 81001; 82550; 82948; 83605; 83735; 84484; 85025; 85027; 87086; 87635; 93005; 93306; 96361; 96365; 97110; 97162; 97165; 97530; 97535; 99285; A9270; G0378; J0696; J1815; J7030

== ENCOUNTER 2023-10-04 15:34 | Emergency (ER) | payer MEDICARE, SELFPAY ==
--- NOTE | 2023-10-04 15:34 | ED.MALEGU ---
HPI - Male Genitourinary General Chief complaint: Urogenital-Male Stated complaint: unable to urinate Time Seen by Provider: 10/04/23 15:34 Related Data Home Medications Medication Instructions Recorded Confirmed alfuzosin 10 mg tablet,extended 10 mg PO DAILY 08/19/23 08/19/23 release 24 hr aspirin 81 mg chewable tablet 81 mg PO DAILY 08/19/23 08/19/23 (Aspirin Childrens) docusate sodium 100 mg capsule 100 mg PO DAILY 08/19/23 08/19/23 gabapentin 100 mg capsule 100 mg PO DAILY 08/19/23 08/19/23 glipizide 10 mg tablet, extended 10 mg PO DAILY 08/19/23 08/19/23 release 24 hr nifedipine 30 mg tablet,extended 30 mg PO DAILY 08/19/23 08/19/23 release ramipril 10 mg capsule 10 mg PO DAILY 08/19/23 08/19/23 simvastatin 20 mg tablet 20 mg PO DAILY 08/19/23 08/19/23 Allergies Allergy/AdvReac Type Severity Reaction Status Date / Time No Known Allergies Allergy Verified 05/08/23 12:48 [facility] Past Medical History Medical History Bladder cancer BPH (benign prostatic hyperplasia) CKD (chronic kidney disease) Diabetes mellitus History of myocardial infarction Hypertension Family History Family History Mother Congestive heart failure Father Esophageal cancer Social History Social History Smoking packs per day: 1 Smoking cigarettes per day: 20.0 Years smoked: 20 Smoking pack-years: 20.00 Smoking status: Former smoker Alcohol intake: never Substance use: never Do You Feel Safe in your Home?: Yes Lack of Transportation: No Lack of Food: Never True Current Housing: I Have Housing Concerned About Future Housing: No Difficulty Paying Gas/Electric Bills: No Difficulty Paying for Meds: No Currently Unemployed: No Education: Grade School Difficulty w/ Childcare or Family Care: No Spiritual care concerns: No Discharge Plan Discharge Prescriptions: No Action alfuzosin 10 mg tablet extended release 24 hr 10 mg PO DAILY Patient Comments: Takes with dinner glipizide 10 mg tablet extended release 24hr 10 mg PO DAILY Patient Comments: Takes with breakfast. nifedipine 30 mg tablet extended release 30 mg PO DAILY Patient Comments: Takes nightly at bedtime. simvastatin 20 mg tablet 20 mg PO DAILY Patient Comments: Takes nightly at bedtime. docusate sodium 100 mg capsule 100 mg PO DAILY Patient Comments: Takes with breakfast gabapentin 100 mg capsule 100 mg PO DAILY Patient Comments: Previously took with dinner, however as of today (per patient daughter), he will no longer be taking this medication. His doctor has switched him to Lyrica, unknown dose at this time. ramipril 10 mg capsule 10 mg PO DAILY Patient Comments: Takes nightly at bedtime. aspirin [Aspirin Childrens] 81 mg Tablet,Chewable 81 mg PO DAILY Patient Comments: Takes daily with lunch Follow-up/Referrals: Brady,MD Natanael [Primary Care Provider] -
--- NOTE | 2023-10-04 15:35 | ED.MALEGU ---
HPI - Male Genitourinary General Chief complaint: Urogenital-Male Stated complaint: unable to urinate Time Seen by Provider: 10/04/23 15:34 History of Present Illness HPI Narrative: Patient is an 87-year-old male with history of prior bladder cancer here with urinary retention. He states that the last couple of months he has had trouble fully emptying his bladder. He follows with urologist Dr. Kelley. he went saw him on Thursday, advised his facility to do bladder scans and straight cath him should he have urinary retention. Patient notes that overnight he got up to go to the bathroom about every 20 minutes, each time he only was able to urinate about a half of a cup. He told the staff this morning and they attempted a straight cath however met significant resistance and had some bleeding. He contacted his urologist who reportedly recommended he come into the emergency department for straight cath. Patient denies any fever or chills. No cough or congestion. No abdominal pain. Related Data Home Medications Medication Instructions Recorded Confirmed alfuzosin 10 mg tablet,extended 10 mg PO DAILY 08/19/23 08/19/23 release 24 hr aspirin 81 mg chewable tablet 81 mg PO DAILY 08/19/23 08/19/23 (Aspirin Childrens) docusate sodium 100 mg capsule 100 mg PO DAILY 08/19/23 08/19/23 gabapentin 100 mg capsule 100 mg PO DAILY 08/19/23 08/19/23 glipizide 10 mg tablet, extended 10 mg PO DAILY 08/19/23 08/19/23 release 24 hr nifedipine 30 mg tablet,extended 30 mg PO DAILY 08/19/23 08/19/23 release ramipril 10 mg capsule 10 mg PO DAILY 08/19/23 08/19/23 simvastatin 20 mg tablet 20 mg PO DAILY 08/19/23 08/19/23 Allergies Allergy/AdvReac Type Severity Reaction Status Date / Time No Known Allergies Allergy Verified 10/04/23 15:57 Review of Systems Review of Systems: All systems reviewed & are unremarkable except as noted in HPI and below PMFSH Past Medical History Medical History Bladder cancer BPH (benign prostatic hyperplasia) CKD (chronic kidney disease) Diabetes mellitus History of myocardial infarction Hypertension Family History Family History Mother Congestive heart failure Father Esophageal cancer Social History Social History Smoking packs per day: 1 Smoking cigarettes per day: 20.0 Years smoked: 20 Smoking pack-years: 20.00 Smoking status: Former smoker Alcohol intake: never Substance use: never Do You Feel Safe in your Home?: Yes Lack of Transportation: No Lack of Food: Never True Current Housing: I Have Housing Concerned About Future Housing: No Difficulty Paying Gas/Electric Bills: No Difficulty Paying for Meds: No Currently Unemployed: No Education: Grade School Difficulty w/ Childcare or Family Care: No Spiritual care concerns: No Exam Narrative: GENERAL: Well-appearing, well-nourished, and in no acute distress. HEAD: Normocephalic, atraumatic. EYES: PERRLA and EOMI. ENT: Nares clear. Mucous membranes moist. NECK: Supple. CHEST: Clear to auscultation. No respiratory distress. HEART: Regular rate and rhythm. Normal peripheral pulses. ABDOMEN: Soft, nontender, mild suprapubic fullness EXTREMITIES: Normal range of motion. No edema. SKIN: Warm, dry, no rash. NEURO: No focal deficits. Alert and oriented x3. PSYCH: Normal mood and affect. Course Course Emergency Course: Chart review performed. Patient here for urinary retention. DC summary from hospitalization in July reviewed, He had been admitted for UTI, fall, elevated troponin. Triage vitals normal. Patient seen evaluated, nontoxic appearing, comfortable appearing. Discussed plan with patient. Given the difficulty his facility had with passing a catheter, I do not feel like a straight cath would be an appropriate long
[2023-10-04 15:37] VITALS: BP 154/62; PULSE 85; RESP 16; TEMP 36.8; O2SAT 98
[2023-10-04] MEDS: LIDOCAINE HCL 2% GEL UROJET 10 ML PKG (15:58)
[2023-10-04 16:03] LABS: Basophils Percent Auto 0.2 % (0.2-1.2); Eosinophils Percent Auto 0.2 % (0-4.4); Hematocrit 32.7 % (42.0-52.0); Hemoglobin 10.5 g/dL (14.0-18.0); Immature Granulocyte Absolute 0.03 K/mm3 (0.00-0.031); Immature Granulocyte Percent A 0.3 % (0-0.5); Lymphocytes Absolute Auto 1.29 K/mm3 (0.9-3.2); Lymphocytes Percent Auto 14.4 % (18.3-44.2); Mean Corpuscular HGB Conc 32.1 g/dl (32-36); Mean Corpuscular Hemoglobin 28.7 pg (26-34); Mean Corpuscular Volume 89.3 fl (80-100); Mean Platelet Volume 9.9 fl (7.4-10.4); Neutrophils Absolute Auto 6.6 K/mm3 (1.3-6.7); Neutrophils Percent Auto 73.9 % (45.5-73.1); Platelet Count Result 180 k/mm3 (150-375); Red Blood Count 3.66 M/mm3 (4.6-6.20); Red Cell Distribution Width 14.8 % (11.5-14.5)
[2023-10-04 16:08] LABS: Appearance Urine Turbid (Clear); Bacteria Urine 4+ /hpf; Bilirubin Urine Negative (Negative); Blood Urine 3+ (Negative); Color Urine Yellow (Yellow); Glucose Urine UA Negative (Negative); Ketones Urine Negative (Negative); Leukocyte Esterase Ur 3+ LEU/UL (Negative); Nitrate Urine Negative (Negative); Non Pathogenic Casts 0-2; Protein Urine 2+ mg/dL (Negative); RBC Urine >100 /hpf (0-2); Specific Grav Ur 1.014 (1.001-1.035); Squamous Epithelial Cell Urine None seen /hpf (Few); Urobilinogen Urine 0.2 mg/dL (<2.0); WBC Urine >100 /hpf; pH Urine 6.5 (5.0-9.0)
[2023-10-04 16:14] LABS: Alanine Aminotransferase 12 U/L (6-50); Albumin Level 3.4 g/dL (3.5-5.1); Alkaline Phosphatase 80 U/L (38-126); Anion Gap 6 mmol/L (8-16); Aspartate Amino Transferase 18 U/L (17-59); Bilirubin,Total 0.4 mg/dL (0.2-1.3); Blood Urea Nitrogen 45 mg/dL (9-20); Calcium 8.5 mg/dL (8.4-10.2); Carbon Dioxide 22 mmol/L (22-30); Chloride 101 mmol/L (98-107); Estimated CRCL calculation 30 ml/min; Estimated Glomerular Filt Rate 44; Glucose 180 mg/dL (65-110); Potassium 4.4 mmol/L (3.4-5.0); Sodium 129 mmol/L (137-145)
[2023-10-04 16:16] LABS: Add Urine Microscopic? YES
[2023-10-04] MEDS: CEPHALEXIN 500 MG CAPSULE PO (17:33)
[2023-10-04 17:56] VITALS: BP 168/62; PULSE 98; RESP 18; TEMP 36.7; O2SAT 96
== END 2023-10-04 17:59 ==
PROVIDERS: Emergency Provider Student in an Organized Health Care Education/Training Program; PCP Internal Medicine
DX: N39.0 Urinary tract infection, site not specified (principal); N40.1 Benign prostatic hyperplasia with lower urinary tract symptoms; R33.8 Other retention of urine; I12.9 Hypertensive chronic kidney disease with stage 1 through stage 4 chronic kidney disease, or unspecified chronic kidney disease; E11.22 Type 2 diabetes mellitus with diabetic chronic kidney disease; N18.9 Chronic kidney disease, unspecified; Z85.51 Personal history of malignant neoplasm of bladder; Z87.891 Personal history of nicotine dependence; Z79.82 Long term (current) use of aspirin; Z79.84 Long term (current) use of oral hypoglycemic drugs
CPT/HCPCS: 36415; 51702; 80053; 81001; 85025; 87077; 87086; 87186; 99283; A9270

== ENCOUNTER 2023-10-06 12:08 | Emergency (ER) | payer MEDICARE, SELFPAY ==
[2023-10-06 12:10] VITALS: BP 126/90; PULSE 88; RESP 18; TEMP 36.4; O2SAT 97
--- NOTE | 2023-10-06 13:00 | ED.GENADULT ---
HPI - General Adult General Chief complaint: Urogenital-Male Stated complaint: urinary sx Time Seen by Provider: 10/06/23 12:42 History of Present Illness HPI narrative: 79-year-old male presents to the emergency department for evaluation of a Cintron catheter issue. Patient's Cintron catheter was replaced upon arrival to the emergency department. Patient states he does feel improved. Related Data Home Medications Medication Instructions Recorded Confirmed alfuzosin 10 mg tablet,extended 10 mg PO DAILY 08/19/23 08/19/23 release 24 hr aspirin 81 mg chewable tablet 81 mg PO DAILY 08/19/23 08/19/23 (Aspirin Children[facility]) docusate sodium 100 mg capsule 100 mg PO DAILY 08/19/23 08/19/23 gabapentin 100 mg capsule 100 mg PO DAILY 08/19/23 08/19/23 glipizide 10 mg tablet, extended 10 mg PO DAILY 08/19/23 08/19/23 release 24 hr nifedipine 30 mg tablet,extended 30 mg PO DAILY 08/19/23 08/19/23 release ramipril 10 mg capsule 10 mg PO DAILY 08/19/23 08/19/23 simvastatin 20 mg tablet 20 mg PO DAILY 08/19/23 08/19/23 Allergies Allergy/AdvReac Type Severity Reaction Status Date / Time No Known Allergies Allergy Verified 10/14/23 13:56 Review of Systems Review of Systems: All systems reviewed & are unremarkable except as noted in HPI and below PMFSH Past Medical History Medical History Bladder cancer BPH (benign prostatic hyperplasia) CKD (chronic kidney disease) Diabetes mellitus History of myocardial infarction Hypertension Family History Family History Mother Congestive heart failure Father Esophageal cancer Social History Social History Smoking packs per day: 1 Smoking cigarettes per day: 20.0 Years smoked: 20 Smoking pack-years: 20.00 Smoking status: Former smoker Alcohol intake: never Substance use: never Do You Feel Safe in your Home?: Yes Lack of Transportation: No Lack of Food: Never True Current Housing: I Have Housing Concerned About Future Housing: No Difficulty Paying Gas/Electric Bills: No Difficulty Paying for Meds: No Currently Unemployed: No Education: Grade School Difficulty w/ Childcare or Family Care: No Spiritual care concerns: No Exam Narrative: APPEARANCE: Well appearing, no pain, no distress, well-nourished. HEAD: normocephalic, atraumatic. EYES: PERRLA/EOMI, conjunctivae clear. NOSE: Normal no drainage EARS:TMS clear with good light reflex. THROAT: Pharynx clear, no exudate. NECK: Supple. No adenopathy, no masses. RESPIRATORY: Airway patent, respirations nonlabored. Clear to auscultation bilaterally, no rales, rhonchi, wheezing. CARDIOVASCULAR: Regular rate and rhythm without murmurs rubs or gallops. ABDOMINAL: Soft, nontender, nondistended, normal bowel sounds MUSCULOSKELETAL: Moves all extremities. Strength/ROM intact, No edema, No calf tenderness. NEURO: Alert. Cranial nerves II through XII intact. Grossly intact SKIN: Warm, dry. Normal Color Course Course Emergency Course: 87-year-old male presenting ED for evaluation of Cintron catheter issue. Cintron catheter was exchanged patient did feel improved. Vital Signs Vital signs: Vital Signs Temperature 97.5 F L 10/06/23 12:10 Pulse Rate 88 10/06/23 12:10 Respiratory Rate 18 10/06/23 12:10 Blood Pressure 126/90 10/06/23 12:10 Pulse Oximetry 97 10/06/23 12:10 Oxygen Delivery Room Air 10/06/23 12:10 Temperature 98.3 F 10/06/23 14:00 Pulse Rate 77 10/06/23 14:00 Respiratory Rate 18 10/06/23 14:00 Blood Pressure 129/86 10/06/23 14:00 Pulse Oximetry 99 10/06/23 14:00 Oxygen Delivery Room Air 10/06/23 12:10 Medical Decision Making Vital Signs Vital Signs: Vital Signs Temperature 97.5 F L 10/06/23 12:10 Pulse Rate 88 10/06/23 12:10 Respiratory Rate 18 02
[2023-10-06 13:01] VITALS: BP 127/65; PULSE 82; RESP 18; TEMP 36.6; O2SAT 96
--- NOTE | 2023-10-06 13:57 | PC.NURSE ---
Leg bag applied. Pt states he knows how to change it out for night time. Family at bedside.
[2023-10-06 14:00] VITALS: BP 129/86; PULSE 77; RESP 18; TEMP 36.8; O2SAT 99
--- NOTE | 2023-10-20 14:16 | PC.NURSE ---
LATE ENTRY This note is being entered to document information to the patient's record. The following information was omitted on [10/06/23], by [Soy Alcantara ]. VORB Replace Salcedo catheter. Susi corbin RN confirmed salcedo was replaced.
--- NOTE | 2023-10-24 12:12 | PC.NURSE ---
Late entry Cintron catheter replaced upon arrival by needle leader
== END 2023-10-06 14:22 ==
LOC: ANHED 13:21
PROVIDERS: Emergency Provider Emergency Medicine; PCP Internal Medicine
DX: T83.021A Displacement of indwelling urethral catheter, initial encounter (principal); E11.22 Type 2 diabetes mellitus with diabetic chronic kidney disease; I12.9 Hypertensive chronic kidney disease with stage 1 through stage 4 chronic kidney disease, or unspecified chronic kidney disease; N18.9 Chronic kidney disease, unspecified; I25.2 Old myocardial infarction; N40.0 Benign prostatic hyperplasia without lower urinary tract symptoms; Z85.51 Personal history of malignant neoplasm of bladder; Z87.891 Personal history of nicotine dependence; Z79.82 Long term (current) use of aspirin; Z79.84 Long term (current) use of oral hypoglycemic drugs; Y84.6 Urinary catheterization as the cause of abnormal reaction of the patient, or of later complication, without mention of misadventure at the time of the procedure
CPT/HCPCS: 51702; 99282

== ENCOUNTER 2023-10-14 13:29 | Emergency (ER) | payer MEDICARE, SELFPAY ==
[2023-10-14 13:30] VITALS: BP 151/95; PULSE 90; RESP 16; TEMP 36.8; O2SAT 98
[2023-10-14 14:53] LABS: Basophils Percent Auto 0.4 % (0.2-1.2); Eosinophils Percent Auto 0.2 % (0-4.4); Hematocrit 34.9 % (42.0-52.0); Hemoglobin 10.9 g/dL (14.0-18.0); Immature Granulocyte Absolute 0.01 K/mm3 (0.00-0.031); Immature Granulocyte Percent A 0.1 % (0-0.5); Lymphocytes Absolute Auto 0.85 K/mm3 (0.9-3.2); Lymphocytes Percent Auto 9.9 % (18.3-44.2); Mean Corpuscular HGB Conc 31.2 g/dl (32-36); Mean Corpuscular Hemoglobin 28.7 pg (26-34); Mean Corpuscular Volume 91.8 fl (80-100); Mean Platelet Volume 9.5 fl (7.4-10.4); Monocytes Absolute Auto 0.6 K/mm3 (0.1-0.6); Monocytes Percent Auto 7.1 % (2.6-8.5); Neutrophils Percent Auto 82.3 % (45.5-73.1); Platelet Count Result 221 k/mm3 (150-375); Red Cell Distribution Width 14.7 % (11.5-14.5); White Blood Count 8.6 K/mm3 (4.5-10.0)
[2023-10-14 15:02] VITALS: BP 140/69; PULSE 98; RESP 14; O2SAT 96
[2023-10-14 15:03] LABS: Alanine Aminotransferase 14 U/L (6-50); Alkaline Phosphatase 92 U/L (38-126); Anion Gap 8 mmol/L (8-16); Aspartate Amino Transferase 28 U/L (17-59); Bilirubin,Total 0.6 mg/dL (0.2-1.3); Blood Urea Nitrogen 36 mg/dL (9-20); Carbon Dioxide 20 mmol/L (22-30); Chloride 102 mmol/L (98-107); Estimated CRCL calculation 35 ml/min; Estimated Glomerular Filt Rate 57; Glucose 176 mg/dL (65-110); Potassium 4.1 mmol/L (3.4-5.0); Sodium 130 mmol/L (137-145)
[2023-10-14 15:05] LABS: INR 1.1; Prothrombin Time 14.6 Seconds (11.1-14.7)
[2023-10-14 15:06] LABS: Partial Thromboplastin Time 30.8 SECONDS (22.3-36.8)
[2023-10-14 15:17] VITALS: BP 141/72; PULSE 84; RESP 14; O2SAT 97
[2023-10-14 15:23] LABS: Appearance Urine Clear (Clear); Bacteria Urine Rare /hpf; Bilirubin Urine Negative (Negative); Blood Urine 3+ (Negative); Color Urine Yellow (Yellow); Glucose Urine UA Negative (Negative); Ketones Urine Negative (Negative); Leukocyte Esterase Ur 1+ LEU/UL (Negative); Need Manual Microscopic Reviewed; Nitrate Urine Negative (Negative); Non Pathogenic Casts 0-2; Protein Urine 3+ mg/dL (Negative); RBC Urine >100 /hpf (0-2); Specific Grav Ur 1.016 (1.001-1.035); Squamous Epithelial Cell Urine None seen /hpf (Few); Urobilinogen Urine 0.2 mg/dL (<2.0); WBC Urine >100 /hpf
[2023-10-14 15:25] LABS: Add Urine Microscopic? YES
--- NOTE | 2023-10-14 15:46 | ED.MALEGU ---
HPI - Male Genitourinary General Chief complaint: Urogenital-Male Stated complaint: blood in catheter Time Seen by Provider: 10/14/23 13:43 History of Present Illness HPI Narrative: Patient is an 87-year-old male who presents ER with hematuria. He was seen on 10/04/2023. He is diagnosed UTI and started on cephalexin own. He had a Cintron placed at that time due to urinary retention. Patient has history of bladder cancer. He is having hematuria since Cintron placement. Home health nurse came out to changes Cintron today and could not place the had more blood come out when they tried to change the catheter so he was sent here. Denies fevers or chills or sweats. He is not on blood thinning medication. Patient is a poor historian in terms of how long he has had the catheter and history had to be obtained mainly from chart review. Related Data Home Medications Medication Instructions Recorded Confirmed alfuzosin 10 mg tablet,extended 10 mg PO DAILY 08/19/23 08/19/23 release 24 hr aspirin 81 mg chewable tablet 81 mg PO DAILY 08/19/23 08/19/23 (Aspirin Childrens) docusate sodium 100 mg capsule 100 mg PO DAILY 08/19/23 08/19/23 gabapentin 100 mg capsule 100 mg PO DAILY 08/19/23 08/19/23 glipizide 10 mg tablet, extended 10 mg PO DAILY 08/19/23 08/19/23 release 24 hr nifedipine 30 mg tablet,extended 30 mg PO DAILY 08/19/23 08/19/23 release ramipril 10 mg capsule 10 mg PO DAILY 08/19/23 08/19/23 simvastatin 20 mg tablet 20 mg PO DAILY 08/19/23 08/19/23 Allergies Allergy/AdvReac Type Severity Reaction Status Date / Time No Known Allergies Allergy Verified 10/14/23 13:56 Review of Systems Review of Systems: All systems reviewed & are unremarkable except as noted in HPI and below Constitutional: Constitutional: Reports no additional constitutional complaints Respiratory: Respiratory: Reports no additional respiratory complaints Gastrointestinal: Gastrointestinal: Reports no additional gastrointestinal complaints Genitourinary: Genitourinary: Reports hematuria, Reports oliguria, Denies dysuria and Denies urinary frequency PMFSH Past Medical History Medical History Bladder cancer BPH (benign prostatic hyperplasia) CKD (chronic kidney disease) Diabetes mellitus History of myocardial infarction Hypertension Family History Family History Mother Congestive heart failure Father Esophageal cancer Social History Social History Smoking packs per day: 1 Smoking cigarettes per day: 20.0 Years smoked: 20 Smoking pack-years: 20.00 Smoking status: Former smoker Alcohol intake: never Substance use: never Do You Feel Safe in your Home?: Yes Lack of Transportation: No Lack of Food: Never True Current Housing: I Have Housing Concerned About Future Housing: No Difficulty Paying Gas/Electric Bills: No Difficulty Paying for Meds: No Currently Unemployed: No Education: Grade School Difficulty w/ Childcare or Family Care: No Spiritual care concerns: No Exam Narrative: GENERAL: Well-appearing, well-nourished, and in no acute distress. HEAD: Normocephalic, atraumatic. ENT: Mucous membranes moist. CHEST: Clear to auscultation. No respiratory distress. HEART: Regular rate and rhythm. Normal peripheral pulses. ABDOMEN: Soft, mild suprapubic discomfort, nondistended. EXTREMITIES: Normal range of motion. No edema. SKIN: Warm, dry, no rash. NEURO: Alert and oriented x3. PSYCH: Normal mood and affect. Course Course Emergency Course: Urine culture from previous visit on 10/04/2023 shows that patient has a Proteus infection resistant to cephalexin. It is sensitive to Bactrim. I have contacted Urology about treatment plan moving forward. Continuous bladder irrigation clears urine immediately however when it is st
[2023-10-14 16:45] VITALS: BP 138/70; PULSE 80; RESP 16; O2SAT 98
== END 2023-10-14 16:45 | disposition home or self-care (01) ==
PROVIDERS: Emergency Provider Emergency Medicine; PCP Internal Medicine
DX: N39.0 Urinary tract infection, site not specified (principal); R31.9 Hematuria, unspecified; E11.22 Type 2 diabetes mellitus with diabetic chronic kidney disease; I12.9 Hypertensive chronic kidney disease with stage 1 through stage 4 chronic kidney disease, or unspecified chronic kidney disease; N18.9 Chronic kidney disease, unspecified; I25.2 Old myocardial infarction; Z85.51 Personal history of malignant neoplasm of bladder; Z87.891 Personal history of nicotine dependence; Z79.82 Long term (current) use of aspirin; Z79.84 Long term (current) use of oral hypoglycemic drugs
CPT/HCPCS: 36415; 51700; 80053; 81001; 85025; 85610; 85730; 87086; 99283

== ENCOUNTER 2023-11-20 13:13 | Inpatient (IN) | payer MEDICARE, SELFPAY ==
[2023-11-20] VITALS (56 sets, daily range): BP systolic 114–152; BP diastolic 51–82; PULSE 63–111; RESP 12–26; TEMP 36–36.6; O2SAT 93–100
--- NOTE | ~2023-11-20 | US_ITS ---
EXAMINATION: US renal BI DATE: 11/22/2023 15:57 INDICATION: Hydronephrosis follow-up TECHNIQUE: Multiple grayscale and Doppler ultrasound images of the kidneys were obtained. COMPARISON: CT abdomen pelvis 11/20/2023 FINDINGS: The right kidney measures 9.2 x 5.8 x 5.6 cm. The left kidney measures 10.0 x 5.4 x 6.2 cm. The kidne ys demonstrate normal parenchymal echogenicity. There is moderate right and mild left hydronephrosis. The bladder is decompressed by a Cintron catheter and therefore not well evaluated. IMPRESSION: Stable moderate right and mild left hydronephrosis. Reviewed, dictated and finalized at location K.
--- NOTE | ~2023-11-20 | CT_ITS ---
EXAMINATION: CT abdomen pelvis w con INDICATION: Low hemoglobin TECHNIQUE: Computed tomographic images of the abdomen and pelvis were obtained after the administrati on of 100 cc of Omnipaque 350 intravenous contrast. The dose-length product (DLP) was 428.50 mGy-cm. Automated exposure control and iterative reconstruction technique were employed. COMPARISON: None available FINDINGS: Minimal dependent atelectasis is present in the lung bases. The heart size is normal. Nodul es of the visualized lung bases measuring up to 6 mm. There are small pleural effusions. Calcified co ronary artery atherosclerosis is noted. Cysts of the liver measure up to 8 mm. The spleen, pancreas, gallbladder, and adrenal glands are normal. There is moderate bilateral hydroureteronephrosis. The ri ght ureter is not well visualized in its distal portion. There are stones measuring up to 5 mm at the right ureterovesicular junction. The bladder is decompressed by Cintron catheter. There is circumferen tial wall thickening of the urinary bladder. A large volume of colonic stool is present. No pathologi xavier enlarged abdominal or pelvic lymph nodes are identified. No free intraperitoneal gas or evidenc e of bowel obstruction. There are bridging osteophytes at multiple levels in the spine, consistent wi th diffuse idiopathic skeletal hyperostosis (DISH). There is severe lumbar spondylosis. IMPRESSION: 1. Moderate bilateral hydroureteronephrosis. 2. Stones measuring up to 5 mm at the right ureterovesicular junction. 3. Circumferential wall thickening of the urinary bladder, likely cystitis. 4. Poor visualization of the right distal ureter which may be due to inflammatory change. Neoplasm is not excluded. 5. Nodules of the visualized lung bases which may be infectious or inflammatory. Consider follow-up C T in three months. Reviewed, dictated and finalized at location F. IMPRESSION: 1. Moderate bilateral hydroureteronephrosis. 2. Stones measuring up to 5 mm at the right ureterovesicular junction. 3. Circumferential wall thickening of the urinary bladder, likely cystitis. 4. Poor visualization of the right distal ureter which may be due to inflammato ry change. Neoplasm is not excluded. 5. Nodules of the visualized lung bases which may be infectious or inflammatory . Consider follow-up CT in three months.
[2023-11-20 14:09] LABS: Eosinophils Percent Auto 0.1 % (0-4.4); Immature Granulocyte Absolute 0.04 K/mm3 (0.00-0.031); Immature Granulocyte Percent A 0.4 % (0-0.5); Lymphocytes Absolute Auto 0.89 K/mm3 (0.9-3.2); Lymphocytes Percent Auto 9.4 % (18.3-44.2); Mean Corpuscular HGB Conc 30.9 g/dl (32-36); Mean Corpuscular Hemoglobin 26.9 pg (26-34); Mean Platelet Volume 9.4 fl (7.4-10.4); Monocytes Absolute Auto 0.6 K/mm3 (0.1-0.6); Monocytes Percent Auto 6.1 % (2.6-8.5); Platelet Count Result 221 k/mm3 (150-375); Red Blood Count 2.16 M/mm3 (4.6-6.20); Red Cell Distribution Width 15.4 % (11.5-14.5); White Blood Count 9.5 K/mm3 (4.5-10.0)
[2023-11-20 14:12] LABS: Hemoglobin 5.8 g/dL (14.0-18.0)
[2023-11-20 14:13] LABS: Hematocrit 18.8 % (42.0-52.0)
[2023-11-20 14:20] LABS: INR 1.1
[2023-11-20 14:21] LABS: Partial Thromboplastin Time 29.9 Seconds (22.3-36.8)
[2023-11-20 14:22] LABS: Alanine Aminotransferase 14 U/L (6-50); Albumin Level 3.1 g/dL (3.5-5.1); Alkaline Phosphatase 69 U/L (38-126); Anion Gap 3 mmol/L (8-16); Aspartate Amino Transferase 23 U/L (17-59); Bilirubin,Total 0.4 mg/dL (0.2-1.3); Blood Urea Nitrogen 52 mg/dL (9-20); Calcium 8.5 mg/dL (8.4-10.2); Carbon Dioxide 24 mmol/L (22-30); Chloride 101 mmol/L (98-107); Estimated CRCL calculation 24 ml/min; Estimated Glomerular Filt Rate 36; Glucose 118 mg/dL (65-110); Potassium 4.1 mmol/L (3.4-5.0); Sodium 128 mmol/L (137-145)
--- NOTE | 2023-11-20 15:08 | PC.NURSE ---
1430 Spoke with Deny from [facility] and gave an update on pts current status.
[2023-11-20] MEDS: SODIUM CHLORIDE 0.9% IV 250 ML 30 ML IV CONT (15:42)
--- NOTE | 2023-11-20 18:33 | ED.RECABL ---
HPI - Recheck/Abnormal Lab/Rx General Chief Complaint: Recheck/Abnormal Lab/Rx <Hilario Lui MD - Last Filed: 11/20/23 18:54> Stated Complaint: hgb 6/weakness <Hilario Lui MD - Last Filed: 11/20/23 18:54> Time Seen by Provider: 11/20/23 14:09 <Hilario Lui MD - Last Filed: 11/20/23 18:54> History of Present Illness HPI narrative: This is an 88-year-old male, with past history of colon cancer, brought in by EMS from his senior living for anemia. EMS reports staff at the patient's senior living noted a low hemoglobin. There is no noted active bleeding. He was transferred for transfusion. The patient has no complaints. He denies bleeding, melena, lightheadedness, shortness of breath, chest pain or loss of consciousness. He is not interested in invasive interventions though he is agreeable to transfusion. <Hilario Lui MD - Last Filed: 11/20/23 18:54> Related Data Home Medications: Home Medications Medication Instructions Recorded Confirmed alfuzosin 10 mg tablet,extended 10 mg PO HS 08/19/23 11/21/23 release 24 hr aspirin 81 mg chewable tablet 81 mg PO DAILY 08/19/23 11/21/23 (Aspirin Childrens) docusate sodium 100 mg capsule 100 mg PO DAILY 08/19/23 11/21/23 gabapentin 100 mg capsule 100 mg PO DAILY 08/19/23 11/21/23 glipizide 10 mg tablet, extended 10 mg PO DAILY 08/19/23 11/21/23 release 24 hr nifedipine 30 mg tablet,extended 30 mg PO DAILY 08/19/23 11/21/23 release ramipril 10 mg capsule 10 mg PO DAILY 08/19/23 11/21/23 simvastatin 20 mg tablet 20 mg PO DAILY 08/19/23 11/21/23 acetaminophen 1,000 mg PO Q6-12H pain 11/21/23 11/21/23 furosemide 40 mg tablet 40 mg PO DAILY 11/21/23 11/21/23 melatonin 3 mg PO HS 11/21/23 11/21/23 tamsulosin 0.4 mg capsule 0.4 mg PO DAILY 11/21/23 11/21/23 trazodone 50 mg tablet 50 mg PO HS 11/21/23 11/21/23 <Hilario Lui MD - Last Filed: 11/20/23 18:54> Allergies/Adverse Reactions: Allergies Allergy/AdvReac Type Severity Reaction Status Date / Time No Known Allergies Allergy Verified 10/14/23 13:56 <Hilario Lui MD - Last Filed: 11/20/23 18:54> Review of Systems Review of Systems: CONSTITUTIONAL: Denies fever, chills, or sweats. CARDIOVASCULAR: Denies chest pain, palpitations, or edema. RESPIRATORY: Denies cough or dyspnea. GASTROINTESTINAL: Denies abdominal pain, nausea, vomiting, or diarrhea. GENITOURINARY: Denies dysuria or hematuria. SKIN: Denies rash or itching. MUSCULOSKELETAL: Denies back pain, joint pain, or myalgia. NEUROLOGIC: Denies headache, numbness, dizziness, or weakness. PSYCHIATRIC: Denies anxiety or depression. <Hilario Lui MD - Last Filed: 11/20/23 18:54> [facility] Past Medical History Medical History: Medical History Bladder cancer BPH (benign prostatic hyperplasia) CKD (chronic kidney disease) Diabetes mellitus History of myocardial infarction Hypertension <Hilario Lui MD - Last Filed: 11/20/23 18:54> Family History Family History: Family History Mother Congestive heart failure Father Esophageal cancer <Hilario Lui MD - Last Filed: 11/20/23 18:54> Social History Social History: Social History Smoking packs per day: 1 Smoking cigarettes per day: 20.0 Years smoked: 20 Smoking pack-years: 20.00 Smoking status: Former smoker Alcohol intake: never Substance use: never Substance use type: does not use Do You Feel Safe in your Home?: Yes Lack of Transportation: No Lack of Food: Never True Current Housing: I Have Housing Concerned About Future Housing: No Difficulty Paying Gas/Electric Bills: No Difficulty Paying for Meds: No Currently Unemployed: No Education: Grade School Difficulty w/ Childcare or Family Care: No Spiri
--- NOTE | 2023-11-20 19:23 | PC.NURSE ---
this rn assumed care of patient. this rn took patient report from odell magallanes.
[2023-11-20] MEDS: MORPHINE SULFATE (*CRX) 2 MG/ML INJ IV PUSH (21:13)
[2023-11-20 22:04] LABS: Appearance Urine Clear (Clear); Bacteria Urine 2+ /hpf; Bilirubin Urine Negative (Negative); Blood Urine 3+ (Negative); Color Urine Yellow (Yellow); Glucose Urine UA Negative (Negative); Ketones Urine Negative (Negative); Leukocyte Esterase Ur 1+ LEU/UL (Negative); Need Manual Microscopic Reviewed; Nitrate Urine Negative (Negative); Non Pathogenic Casts 0-2; Protein Urine 4+ mg/dL (Negative); Squamous Epithelial Cell Urine None Seen /hpf (Few); WBC Urine 51-100 /hpf (0-3)
[2023-11-20 22:05] LABS: RBC Urine >100 /hpf (0-2); Specific Grav Ur 1.035 (1.001-1.035)
[2023-11-20 22:06] LABS: Add Urine Microscopic? YES
--- NOTE | 2023-11-20 22:17 | PM.IMHP ---
H&P: HPI History of Present Illness Date/Time: 11/20/23 22:17 Chief Complaint: abnormal lab work Narrative: this is an 88-year-old male with past medical history significant for colon cancer, [facility] resident, benign prostatic hyperplasia, chronic kidney disease, type diabetes mellitus, hypertension. Patient was brought to the emergency room for evaluation due to abnormal lab work routinely drawn at [facility] found to have a low hemoglobin. Repeat blood work in the emergency room showed a hemoglobin of 5.8 BUN 50 creatinine 1.8 a urinalysis showed numerous WBCs present, CT of abdomen and pelvis showed multiple kidney stones. EXAMINATION: CT abdomen pelvis w con INDICATION: Low hemoglobin TECHNIQUE: Computed tomographic images of the abdomen and pelvis were obtained after the administration of 100 cc of Omnipaque 350 intravenous contrast. The dose-length product (DLP) was 428.50 mGy-cm. Automated exposure control and iterative reconstruction technique were employed. COMPARISON: None available FINDINGS: Minimal dependent atelectasis is present in the lung bases. The heart size is normal. Nodules of the visualized lung bases measuring up to 6 mm. There are small pleural effusions. Calcified coronary artery atherosclerosis is noted. Cysts of the liver measure up to 8 mm. The spleen, pancreas, gallbladder, and adrenal glands are normal. There is moderate bilateral hydroureteronephrosis. The right ureter is not well visualized in its distal portion. There are stones measuring up to 5 mm at the right ureterovesicular junction. The bladder is decompressed by Cintron catheter. There is circumferential wall thickening of the urinary bladder. A large volume of colonic stool is present. No pathologically enlarged abdominal or pelvic lymph nodes are identified. No free intraperitoneal gas or evidence of bowel obstruction. There are bridging osteophytes at multiple levels in the spine, consistent with diffuse idiopathic skeletal hyperostosis (DISH). There is severe lumbar spondylosis. IMPRESSION: 1. Moderate bilateral hydroureteronephrosis. 2. Stones measuring up to 5 mm at the right ureterovesicular junction. 3. Circumferential wall thickening of the urinary bladder, likely cystitis. 4. Poor visualization of the right distal ureter which may be due to inflammatory change. Neoplasm is not excluded. 5. Nodules of the visualized lung bases which may be infectious or inflammatory. Consider follow-up CT in three months. Review of Systems Review of Systems: Patient can not really contribute in a meaningful way to history taking [facility] Past Medical History Medical History Bladder cancer BPH (benign prostatic hyperplasia) CKD (chronic kidney disease) Diabetes mellitus History of myocardial infarction Hypertension Family History Family History Mother Congestive heart failure Father Esophageal cancer Social History Social History Smoking packs per day: 1 Smoking cigarettes per day: 20.0 Years smoked: 20 Smoking pack-years: 20.00 Smoking status: Former smoker Alcohol intake: never Substance use: never Do You Feel Safe in your Home?: Yes Lack of Transportation: No Lack of Food: Never True Current Housing: I Have Housing Concerned About Future Housing: No Difficulty Paying Gas/Electric Bills: No Difficulty Paying for Meds: No Currently Unemployed: No Education: Grade School Difficulty w/ Childcare or Family Care: No Spiritual care concerns: No Meds Home Medications and Allergies Home Medications Medication Instructions Recorded Confirmed Type alfuzosin 10 mg tablet,extended 10 mg PO DAILY 08/19/23 08/19/23 History release 24 hr aspirin 81 mg chewable tablet 81 mg PO DAILY 08/19/23 08/19/23 History (Aspirin Chi
[2023-11-21 00:20] VITALS: BP 141/68; PULSE 88; RESP 16; TEMP 36.5; O2SAT 96
[2023-11-21 01:18] VITALS: BMI 24.7
--- NOTE | 2023-11-21 01:23 | ADMGEN ---
This patient, Pankaj Carnes, was admitted to [facility] Surg Room 306-01. Patient/family oriented to hospital policies and general routines including ID bracelet, bed and alarms, visiting hours, pain management, procedures, bathroom and other care routines, personal items, smoking policy, room service/diet, and visiting hours. Information on how to activate the Rapid Response Team has been discussed. Patient/Family are encouraged to report perceived risks to care and to ask questions if they do not understand what they are told or what they should do.
[2023-11-21 04:35] VITALS: BP 136/60; PULSE 79; RESP 16; TEMP 36.6; O2SAT 95
[2023-11-21 07:22] LABS: Glucose Point of Care 107 mg/dl (65-105)
[2023-11-21 07:51] LABS: Hematocrit 26.6 % (42.0-52.0); Hemoglobin 8.3 g/dL (14.0-18.0)
[2023-11-21 08:00] VITALS: PULSE 79; RESP 16; O2SAT 95
[2023-11-21 11:57] LABS: Glucose Point of Care 187 mg/dl (65-105)
--- NOTE | 2023-11-21 12:59 | PM.IMPN ---
Progress Note: A&P Assessment and Plan (1) Acute UTI: Code(s): N39.0 - Urinary tract infection, site not specified Status: Acute (2) [id number] kidney injury: Code(s): N17.9 - Acute kidney failure, unspecified; N18.9 - Chronic kidney disease, unspecified Status: Acute (3) Normochromic normocytic anemia: Code(s): D64.9 - Anemia, unspecified Status: Acute (4) Diabetes mellitus: Code(s): E11.9 - Type 2 diabetes mellitus without complications Status: Acute (5) Bladder cancer: Code(s): C67.9 - Malignant neoplasm of bladder, unspecified Status: Acute Plan 88-year-old male with past medical history colon cancer completed treatment [facility]. Is no active bleeding reported. He was transferred for transfusion. He denies any melena bright red blood per rectum lightheadedness shortness of breath chest pain or loss of consciousness. He is also not interested in any invasive interventions except for transfusion. His hemoglobin was noted to be 5.8 his baseline hemoglobin around. He got 2 units of packed red blood cell transfused his hemoglobin up to ureteral vesicular junction. Circumferential wall thickening of the urinary bladder likely cystitis. Poor visualization of the right distal ureter which may be due to inflammatory change not excluded. Nodules at the visualized lung bases which may be infectious or tree. Consider follow-up CT in 3 months. Urine culture is pending. Placed on ceftriaxone IV. Recent culture positive for Proteus which was resistant to ceftriaxone. Will switch antibiotics to cefepime Acute on chronic anemia: Check FOBT. Ongoing hematuria reported on and off. RODO: 1.8 baseline around 1.2. Hold ramipril and furosemide check CK level. CT with hydro ureteral nephrosis. Cintron has been changed in the ED and draining well. Will recheck renal ultrasound to ensure resolution Obstructive uropathy: Follows with Dr. 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 Is no active bleeding reported. He was transferred for transfusion. He denies any melena bright red blood per rectum lightheadedness shortness of breath chest pain or loss of consciousness. He is also not interested in any invasive interventions except for transfusion. His hemoglobin was noted to be 5.8 his baseline hemoglobin around. He got 2 units of packed red blood cell transfused his hemoglobin up to ureteral vesicular junction. Circumferential wall thickening of the urinary bladder likely cystitis. Poor visualization of the right distal ureter which may be due to inflammatory change not excluded. Nodules at the visualized lung bases which may be infectious or tree. Consider follow-up CT in 3 months. Urine culture is pending. Placed on ceftriaxone IV. Recent culture positive for Proteus which was resistant to ceftriaxone. Will switch antibiotics to cefepime Acute on chronic anemia: Check FOBT. Ongoing hematuria reported on and off. RODO: 1.8 baseline around 1.2. Hold ramipril and furosemide check CK level. CT with hydro ureteral nephrosis. Cintron has been changed in the ED and draining well. Will recheck renal ultrasound to ensure resolution Obstructive uropathy: Follows with Dr. 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
[2023-11-21 13:35] LABS: Basophils Percent Auto 0.3 % (0.2-1.2); Eosinophils Percent Auto 0.4 % (0-4.4); Hematocrit 25.6 % (42.0-52.0); Hemoglobin 8.2 g/dL (14.0-18.0); Immature Granulocyte Absolute 0.03 K/mm3 (0.00-0.031); Immature Granulocyte Percent A 0.4 % (0-0.5); Lymphocytes Absolute Auto 0.82 K/mm3 (0.9-3.2); Lymphocytes Percent Auto 10.9 % (18.3-44.2); Mean Corpuscular Hemoglobin 28.3 pg (26-34); Mean Corpuscular Volume 88.3 fl (80-100); Mean Platelet Volume 8.9 fl (7.4-10.4); Monocytes Absolute Auto 0.6 K/mm3 (0.1-0.6); Monocytes Percent Auto 7.3 % (2.6-8.5); Neutrophils Absolute Auto 6.1 K/mm3 (1.3-6.7); Neutrophils Percent Auto 80.7 % (45.5-73.1); Platelet Count Result 176 k/mm3 (150-375); Red Cell Distribution Width 15.2 % (11.5-14.5); White Blood Count 7.6 K/mm3 (4.5-10.0)
[2023-11-21 13:44] LABS: Immature Reticulocyte Fraction 30.1 % (3.0-15.9); Reticulocyte Percent 2.75 % (0.7-4.3); Reticulocytes Absolute 0.08 10^6/uL (0.02-0.10)
[2023-11-21 13:46] LABS: Creatine Kinase 32 U/L (55-170)
[2023-11-21 13:55] LABS: Alanine Aminotransferase 12 U/L (6-50); Albumin Level 2.8 g/dL (3.5-5.1); Alkaline Phosphatase 65 U/L (38-126); Anion Gap 3 mmol/L (8-16); Aspartate Amino Transferase 16 U/L (17-59); Bilirubin,Total 0.6 mg/dL (0.2-1.3); Blood Urea Nitrogen 38 mg/dL (9-20); Calcium 8.3 mg/dL (8.4-10.2); Carbon Dioxide 25 mmol/L (22-30); Chloride 102 mmol/L (98-107); Estimated CRCL calculation 29 ml/min; Estimated Glomerular Filt Rate 44; Glucose 152 mg/dL (65-110); Magnesium 2.3 mg/dL (1.6-2.3); Potassium 4.4 mmol/L (3.4-5.0); Sodium 130 mmol/L (137-145)
[2023-11-21 14:00] VITALS: BP 140/62; PULSE 79; RESP 18; TEMP 36.9; O2SAT 97
[2023-11-21] MEDS: CEFEPIME 1 GM/NS 50 ML 1 GM/50 ML BAG IVPB (14:57)
[2023-11-21 15:40] LABS: Iron 65 ug/dL (49-181)
[2023-11-21 16:30] LABS: Glucose Point of Care 166 mg/dl (65-105)
[2023-11-21 16:46] LABS: Percent Iron Saturation 22 % (20-50)
[2023-11-21] MEDS: BISACODYL 10 MG SUPPOSITORY RECTAL (16:49)
[2023-11-21 17:04] LABS: Folic Acid 17.4 ng/mL (2.76->20)
[2023-11-21] MEDS: GABAPENTIN 100 MG CAPSULE PO (17:28)
[2023-11-21 20:44] VITALS: BP 132/69; PULSE 77; RESP 16; TEMP 36.7; O2SAT 100
[2023-11-21] MEDS: traZODone HCL 50 MG TABLET PO (20:47)
[2023-11-21] MEDS: SIMVASTATIN 20 MG TABLET PO (20:47)
[2023-11-21] MEDS: MELATONIN 3 MG TABLET PO (20:47)
[2023-11-21] MEDS: NIFEdipine 30 MG TAB.ER.24 PO (20:47)
[2023-11-21 21:05] LABS: Glucose Point of Care 165 mg/dl (65-105)
[2023-11-22 05:00] VITALS: BP 102/53; PULSE 87; RESP 16; TEMP 36.2; O2SAT 95
[2023-11-22 07:19] LABS: Basophils Percent Auto 0.3 % (0.2-1.2); Eosinophils Absolute Auto 0.1 K/mm3 (0-0.3); Eosinophils Percent Auto 1.1 % (0-4.4); Hematocrit 25.7 % (42.0-52.0); Hemoglobin 7.9 g/dL (14.0-18.0); Immature Granulocyte Absolute 0.03 K/mm3 (0.00-0.031); Immature Granulocyte Percent A 0.4 % (0-0.5); Lymphocytes Absolute Auto 0.84 K/mm3 (0.9-3.2); Lymphocytes Percent Auto 11.9 % (18.3-44.2); Mean Corpuscular HGB Conc 30.7 g/dl (32-36); Mean Corpuscular Hemoglobin 27.8 pg (26-34); Mean Corpuscular Volume 90.5 fl (80-100); Mean Platelet Volume 9.7 fl (7.4-10.4); Monocytes Absolute Auto 0.6 K/mm3 (0.1-0.6); Monocytes Percent Auto 7.9 % (2.6-8.5); Neutrophils Absolute Auto 5.5 K/mm3 (1.3-6.7); Neutrophils Percent Auto 78.4 % (45.5-73.1); Platelet Count Result 185 k/mm3 (150-375); Red Blood Count 2.84 M/mm3 (4.6-6.20); Red Cell Distribution Width 15.7 % (11.5-14.5); White Blood Count 7.1 K/mm3 (4.5-10.0)
[2023-11-22 07:34] LABS: Alanine Aminotransferase 10 U/L (6-50); Albumin Level 2.6 g/dL (3.5-5.1); Alkaline Phosphatase 60 U/L (38-126); Anion Gap 1 mmol/L (8-16); Aspartate Amino Transferase 16 U/L (17-59); Bilirubin,Total 0.5 mg/dL (0.2-1.3); Blood Urea Nitrogen 33 mg/dL (9-20); Calcium 8.2 mg/dL (8.4-10.2); Carbon Dioxide 28 mmol/L (22-30); Chloride 101 mmol/L (98-107); Estimated CRCL calculation 27 ml/min; Estimated Glomerular Filt Rate 41; Glucose 99 mg/dL (65-110); Magnesium 2.3 mg/dL (1.6-2.3); Potassium 4.3 mmol/L (3.4-5.0); Sodium 130 mmol/L (137-145)
[2023-11-22 07:51] LABS: Glucose Point of Care 101 mg/dl (65-105)
[2023-11-22 08:00] VITALS: PULSE 79; RESP 18; O2SAT 95
[2023-11-22] MEDS: DOCUSATE SODIUM 100 MG CAPSULE PO (08:35)
[2023-11-22] MEDS: glipiZIDE XL 5 MG TABCR 10 MG PO (08:36)
[2023-11-22] MEDS: TAMSULOSIN HCL 0.4 MG CAPSULE PO (08:36)
[2023-11-22 11:21] LABS: Glucose Point of Care 194 mg/dl (65-105)
[2023-11-22 14:00] VITALS: BP 119/51; PULSE 79; RESP 18; TEMP 36.7; O2SAT 95
[2023-11-22] MEDS: CEFEPIME 1 GM/NS 50 ML 1 GM/50 ML BAG IVPB (14:52)
[2023-11-22 16:24] LABS: Glucose Point of Care 186 mg/dl (65-105)
--- NOTE | 2023-11-22 16:43 | PM.IMPN ---
Progress Note: A&P Assessment and Plan (1) Acute UTI: Code(s): N39.0 - Urinary tract infection, site not specified Status: Acute (2) Stlbc-pt-vbtmdsy kidney injury: Code(s): N17.9 - Acute kidney failure, unspecified; N18.9 - Chronic kidney disease, unspecified Status: Acute (3) Normochromic normocytic anemia: Code(s): D64.9 - Anemia, unspecified Status: Acute (4) Diabetes mellitus: Code(s): E11.9 - Type 2 diabetes mellitus without complications Status: Acute (5) Bladder cancer: Code(s): C67.9 - Malignant neoplasm of bladder, unspecified Status: Acute Plan 88-year-old male with past medical history colon cancer completed treatment presents to the halfway due to anemia. Is no active bleeding reported. He was transferred for transfusion. He denies any melena bright red blood per rectum lightheadedness shortness of breath chest pain or loss of consciousness. He is also not interested in any invasive interventions except for transfusion. His hemoglobin was noted to be 5.8 his baseline hemoglobin around. He got 2 units of packed red blood cell transfused his hemoglobin up to ureteral vesicular junction. Circumferential wall thickening of the urinary bladder likely cystitis. Poor visualization of the right distal ureter which may be due to inflammatory change not excluded. Nodules at the visualized lung bases which may be infectious or tree. Consider follow-up CT in 3 months. Urine culture is pending. Placed on ceftriaxone IV. Recent culture positive for Proteus which was resistant to ceftriaxone. Will switch antibiotics to cefepime. Urine culture growing Gram-negative bacilli yet to be identified. Acute on chronic anemia: Check FOBT. Ongoing hematuria reported on and off. RODO: 1.8 baseline around 1.2. Hold ramipril and furosemide check CK level. CT with hydro ureteral nephrosis. Cintron has been changed in the ED and draining well. Renal ultrasound with stable moderate right and mild left hydronephrosis. Will consult Urology Obstructive uropathy: Follows with Dr. 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 Is no active bleeding reported. He was transferred for transfusion. He denies any melena bright red blood per rectum lightheadedness shortness of breath chest pain or loss of consciousness. He is also not interested in any invasive interventions except for transfusion. His hemoglobin was noted to be 5.8 his baseline hemoglobin around. He got 2 units of packed red blood cell transfused his hemoglobin up to ureteral vesicular junction. Circumferential wall thickening of the urinary bladder likely cystitis. Poor visualization of the right distal ureter which may be due to inflammatory change not excluded. Nodules at the visualized lung bases which may be infectious or tree. Consider follow-up CT in 3 months. Urine culture is pending. Placed on ceftriaxone IV. Recent culture positive for Proteus which was resistant to ceftriaxone. Will switch antibiotics to cefepime Acute on chronic anemia: Check FOBT. Ongoing hematuria reported on and off. RODO: 1.8 baseline around 1.2. Hold ramipril and furosemide check CK level. CT with hydro ureteral nephrosis. Cintron has been changed in the ED and draining well. Will recheck renal ultrasound to ensure resolution Obstructive uropathy: Follows with Dr. 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
[2023-11-22] MEDS: GABAPENTIN 100 MG CAPSULE PO (16:44)
[2023-11-22 20:52] VITALS: BP 112/58; PULSE 110; RESP 16; TEMP 36.8; O2SAT 96
[2023-11-22 21:20] LABS: Glucose Point of Care 114 mg/dl (65-105)
[2023-11-22] MEDS: SIMVASTATIN 20 MG TABLET PO (21:35)
[2023-11-22] MEDS: traZODone HCL 50 MG TABLET PO (21:35)
[2023-11-22] MEDS: MELATONIN 3 MG TABLET PO (21:35)
[2023-11-22] MEDS: NIFEdipine 30 MG TAB.ER.24 PO (21:35)
[2023-11-23 04:27] VITALS: BP 101/52; PULSE 91; RESP 16; TEMP 36.8; O2SAT 95
[2023-11-23 07:10] LABS: Glucose Point of Care 90 mg/dl (65-105)
[2023-11-23 08:00] VITALS: PULSE 91; RESP 16; O2SAT 95
[2023-11-23] MEDS: DOCUSATE SODIUM 100 MG CAPSULE PO (08:25)
[2023-11-23] MEDS: glipiZIDE XL 5 MG TABCR 10 MG PO (08:25)
[2023-11-23] MEDS: TAMSULOSIN HCL 0.4 MG CAPSULE PO (08:26)
[2023-11-23 08:29] LABS: Basophils Percent Auto 0.4 % (0.2-1.2); Eosinophils Absolute Auto 0.1 K/mm3 (0-0.3); Eosinophils Percent Auto 0.8 % (0-4.4); Hematocrit 26.1 % (42.0-52.0); Hemoglobin 8.3 g/dL (14.0-18.0); Immature Granulocyte Absolute 0.04 K/mm3 (0.00-0.031); Immature Granulocyte Percent A 0.6 % (0-0.5); Lymphocytes Absolute Auto 0.98 K/mm3 (0.9-3.2); Lymphocytes Percent Auto 13.7 % (18.3-44.2); Mean Corpuscular HGB Conc 31.8 g/dl (32-36); Mean Corpuscular Hemoglobin 28.6 pg (26-34); Mean Platelet Volume 9.2 fl (7.4-10.4); Monocytes Absolute Auto 0.5 K/mm3 (0.1-0.6); Monocytes Percent Auto 7.3 % (2.6-8.5); Neutrophils Absolute Auto 5.5 K/mm3 (1.3-6.7); Neutrophils Percent Auto 77.2 % (45.5-73.1); Platelet Count Result 159 k/mm3 (150-375); Red Cell Distribution Width 15.7 % (11.5-14.5); White Blood Count 7.1 K/mm3 (4.5-10.0)
[2023-11-23 08:38] LABS: Anion Gap 0 mmol/L (8-16); Blood Urea Nitrogen 36 mg/dL (9-20); Calcium 8.1 mg/dL (8.4-10.2); Carbon Dioxide 28 mmol/L (22-30); Chloride 102 mmol/L (98-107); Estimated CRCL calculation 24 ml/min; Estimated Glomerular Filt Rate 36; Glucose 93 mg/dL (65-110); Potassium 4.3 mmol/L (3.4-5.0); Sodium 130 mmol/L (137-145)
[2023-11-23 08:40] VITALS: O2SAT 95
[2023-11-23 11:50] LABS: Glucose Point of Care 183 mg/dl (65-105)
--- NOTE | 2023-11-23 11:54 | WPDURCON ---
Assessment and Plan Assessment and plan (1) Bilateral hydronephrosis: Code(s): N13.30 - Unspecified hydronephrosis Status: Acute Assessment and Plan: Worsened over baseline. Creatinine worsened to 1.8 over baseline. History of right ureteral stricture. Right kidney contributes 20% renal function. Will make NPO after midnight for cystoscopy, possible retrograde pyelograms, possible ureteroscopy with stone extraction on the right, possible bilateral stent placement. He understands risks of bleeding, infection, inability to place the stent. Also stents may not improve his overall renal function if it is prerenal in nature (2) Ureteral stone: Code(s): N20.1 - Calculus of ureter Status: Acute Assessment and Plan: Possible stone in the right distal ureter. Hard to delineate on CT scan (3) History of bladder cancer: Code(s): Z85.51 - Personal history of malignant neoplasm of bladder Status: Acute Assessment and Plan: Status post radiation and chemotherapy. Last cystoscopy in October 2023 normal (4) Ureteral stricture, right: Code(s): N13.5 - Crossing vessel and stricture of ureter without hydronephrosis Status: Acute Assessment and Plan: Known issue. Could be secondary to transurethral resection of the bladder tumor over the renal orifice with subsequent radiation therapy (5) Asymptomatic bacteriuria: Code(s): R82.71 - Bacteriuria Status: Acute Assessment and Plan: Likely due to chronic indwelling catheter. Urine culture shows Enterobacter. He is on culture specific antibiotics. May represent colonization rather than infection (6) Urinary retention due to benign prostatic hyperplasia: Code(s): N40.1 - Benign prostatic hyperplasia with lower urinary tract symptoms; R33.8 - Other retention of urine Status: Acute Assessment and Plan: Chronic indwelling Cintron. Continue Flomax Urology Consult Note HPI Date Seen: 11/23/23 Requesting Physician: Maryam Otero MD Primary Care Provider: Natanael AbreuMD Consult Narrative Narrative: Pankaj Carnes is a 88 year old male with a complicated urologic history. He has history of muscle invasive bladder cancer. He is status post resection on the right. This was done over the ureteral orifice. He has been treated with radiation and chemotherapy. He has a known right ureteral stricture. Renal scan shows the right kidney only contributes 20% to the overall renal function. He is known to be obstructed on the right. He is admitted for weakness. He has received a blood transfusion. Imaging shows worsening bilateral hydronephrosis. Right greater than left. There is possibility of stone in the right distal ureter. He has never had history of kidney stones. He has no complaints of flank pain. 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 Urine culture is positive for Enterobacter. He has no history of symptomatic infections. This may represent colonization rather than infection. He has worsening renal function. Creatinine is 1.8 over a baseline of 1. Last cystoscopy October 2023 was without recurrence. He has had voiding issues with urinary retention. He was catheterizing in the past. Now he has a chronic indwelling Cintron catheter. He denies fever. Review of Systems Review of Systems: All systems reviewed & are unremarkable except as noted in HPI and below PMFSH Past Medical History Medical History Bladder cancer BPH (benign prostatic hyperplasia) CKD (chronic kidney disease) Diabetes mellitus History of myocardial infarction Hypertension Family History Family History Mother Congestive heart failure Father Esophageal cancer Social History Social History (Revi
[2023-11-23] MEDS: CEFEPIME 1 GM/NS 50 ML 1 GM/50 ML BAG IVPB (13:07)
--- NOTE | 2023-11-23 13:13 | PM.IMPN ---
Progress Note: A&P Assessment and Plan (1) Acute UTI: Code(s): N39.0 - Urinary tract infection, site not specified Status: Acute (2) [place]-ae-lsoausn kidney injury: Code(s): N17.9 - Acute kidney failure, unspecified; N18.9 - Chronic kidney disease, unspecified Status: Acute (3) Normochromic normocytic anemia: Code(s): D64.9 - Anemia, unspecified Status: Acute (4) Diabetes mellitus: Code(s): E11.9 - Type 2 diabetes mellitus without complications Status: Acute (5) Bladder cancer: Code(s): C67.9 - Malignant neoplasm of bladder, unspecified Status: Acute Plan 88-year-old male with past medical history bladder cancer completed treatment presents to the care home due to anemia. He reported no active bleeding reported. He was transferred for transfusion. He denies any melena bright red blood per rectum lightheadedness shortness of breath chest pain or loss of consciousness. He is also not interested in any invasive interventions except for transfusion. His hemoglobin was noted to be 5.8 his baseline hemoglobin around. He got 2 units of packed red blood cell transfused. His hemoglobin is up and remains stable. CT abdomen pelvis showed moderate bilateral hydroureteronephrosis. Stones measuring up to 5 mm at the ureteral vesicular junction. Circumferential wall thickening of the urinary bladder likely cystitis. Poor visualization of the right distal ureter which may be due to inflammatory change not excluded. Nodules at the visualized lung bases which may be infectious or tree. Consider follow-up CT in 3 months. Urine culture growing Enterobacter.. Placed on ceftriaxone IV. Recent culture positive for Proteus which was resistant to ceftriaxone. Switched antibiotics to cefepime. Urine culture growing Enterobacter sensitive to cefepime. Levofloxacin is another option to oral to complete course. Acute on chronic anemia: Check FOBT. Ongoing hematuria reported on and off. H&H remains stable RODO: 1.8 baseline around 1.2. Hold ramipril and furosemide check CK level. CT with hydro ureteral nephrosis. Cintron has been changed in the ED and draining well. Renal ultrasound with stable moderate right and mild left hydronephrosis. Urology planned for cystoscopy and possible stent placement in a.m. Obstructive uropathy: Follows with Dr. 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 Is no active bleeding reported. He was transferred for transfusion. He denies any melena bright red blood per rectum lightheadedness shortness of breath chest pain or loss of consciousness. He is also not interested in any invasive interventions except for transfusion. His hemoglobin was noted to be 5.8 his baseline hemoglobin around. He got 2 units of packed red blood cell transfused his hemoglobin up to ureteral vesicular junction. Circumferential wall thickening of the urinary bladder likely cystitis. Poor visualization of the right distal ureter which may be due to inflammatory change not excluded. Nodules at the visualized lung bases which may be infectious or tree. Consider follow-up CT in 3 months. Urine culture is pending. Placed on ceftriaxone IV. Recent culture positive for Proteus which was resistant to ceftriaxone. Will switch antibiotics to cefepime Acute on chronic anemia: Check FOBT. Ongoing hematuria reported on and off. RODO: 1.8 baseline around 1.2. Hold ramipril and furosemide check CK level. CT with hydro ureteral nephrosis. Cintron has been changed in the ED and draining well. Will recheck renal ultrasoun
[2023-11-23 14:00] VITALS: BP 106/46; PULSE 86; RESP 20; TEMP 36.4; O2SAT 93
[2023-11-23 16:37] LABS: Glucose Point of Care 202 mg/dl (65-105)
[2023-11-23] MEDS: GABAPENTIN 100 MG CAPSULE PO (16:48)
[2023-11-23 20:24] LABS: Glucose Point of Care 203 mg/dl (65-105)
[2023-11-23] MEDS: traZODone HCL 50 MG TABLET PO (20:29)
[2023-11-23] MEDS: SIMVASTATIN 20 MG TABLET PO (20:29)
[2023-11-23] MEDS: NIFEdipine 30 MG TAB.ER.24 PO (20:29)
[2023-11-23] MEDS: ACETAMINOPHEN 500 MG TABLET 1000 MG PO (20:31)
[2023-11-23 20:35] VITALS: BP 104/61; PULSE 89; RESP 16; TEMP 36.9; O2SAT 95
[2023-11-23 20:59] LABS: IFOB Positive Control Positive; Immunochemical Fecal Occult Bl Negative (N)
[2023-11-24] VITALS (9 sets, daily range): BP systolic 108–124; BP diastolic 50–66; PULSE 82–95; RESP 14–20; TEMP 36.1–36.9; O2SAT 91–98
[2023-11-24 07:10] LABS: Basophils Percent Auto 0.4 % (0.2-1.2); Eosinophils Absolute Auto 0.1 K/mm3 (0-0.3); Eosinophils Percent Auto 1.5 % (0-4.4); Hematocrit 26.1 % (42.0-52.0); Immature Granulocyte Absolute 0.03 K/mm3 (0.00-0.031); Immature Granulocyte Percent A 0.4 % (0-0.5); Lymphocytes Absolute Auto 0.68 K/mm3 (0.9-3.2); Lymphocytes Percent Auto 9.3 % (18.3-44.2); Mean Corpuscular HGB Conc 30.7 g/dl (32-36); Mean Corpuscular Hemoglobin 27.7 pg (26-34); Mean Corpuscular Volume 90.3 fl (80-100); Mean Platelet Volume 9.8 fl (7.4-10.4); Monocytes Absolute Auto 0.5 K/mm3 (0.1-0.6); Neutrophils Absolute Auto 5.9 K/mm3 (1.3-6.7); Neutrophils Percent Auto 81.4 % (45.5-73.1); Platelet Count Result 164 k/mm3 (150-375); Red Blood Count 2.89 M/mm3 (4.6-6.20); Red Cell Distribution Width 15.9 % (11.5-14.5); White Blood Count 7.3 K/mm3 (4.5-10.0)
[2023-11-24 07:26] LABS: Alanine Aminotransferase 15 U/L (6-50); Albumin Level 2.4 g/dL (3.5-5.1); Alkaline Phosphatase 62 U/L (38-126); Anion Gap 4 mmol/L (8-16); Aspartate Amino Transferase 21 U/L (17-59); Bilirubin,Total 0.4 mg/dL (0.2-1.3); Blood Urea Nitrogen 40 mg/dL (9-20); Calcium 7.8 mg/dL (8.4-10.2); Carbon Dioxide 24 mmol/L (22-30); Chloride 101 mmol/L (98-107); Estimated CRCL calculation 23 ml/min; Estimated Glomerular Filt Rate 34; Glucose 107 mg/dL (65-110); Magnesium 2.5 mg/dL (1.6-2.3); Potassium 4.3 mmol/L (3.4-5.0); Sodium 129 mmol/L (137-145)
[2023-11-24 07:38] LABS: Glucose Point of Care 100 mg/dl (65-105)
[2023-11-24] MEDS: TAMSULOSIN HCL 0.4 MG CAPSULE PO (08:27)
[2023-11-24] MEDS: ACETAMINOPHEN 500 MG TABLET 1000 MG PO (08:27)
--- NOTE | 2023-11-24 09:34 | WPDUROPN2 ---
Progress Note: A&P Assessment and Plan (1) Bilateral hydronephrosis: Code(s): N13.30 - Unspecified hydronephrosis Status: Acute Assessment and Plan: Worsened from baseline. Creatinine has increased to 1.9 History of right ureteral stricture. Right kidney contributes 20% renal function. Plan for cystoscopy, possible retrograde pyelogram, possible ureteroscopy with stone extraction on the right, possible bilateral stent placement this afternoon with Dr. Bui. Continue NPO diet. (2) Ureteral stone: Code(s): N20.1 - Calculus of ureter Status: Acute Assessment and Plan: Possible stone in the right distal ureter. Hard to delineate on CT scan. Will undergo possible ureteroscopy with stone extraction as above. (3) History of bladder cancer: Code(s): Z85.51 - Personal history of malignant neoplasm of bladder Status: Acute Assessment and Plan: Status post radiation and chemotherapy. Last cystoscopy in October 2023 normal (4) Ureteral stricture, right: Code(s): N13.5 - Crossing vessel and stricture of ureter without hydronephrosis Status: Acute Assessment and Plan: Known chronic issue. Could be secondary to transurethral resection of the bladder tumor over the renal orifice with subsequent radiation therapy (5) Asymptomatic bacteriuria: Code(s): R82.71 - Bacteriuria Status: Acute Assessment and Plan: Likely due to chronic indwelling catheter. Urine culture with growth of Enterobacter. He is on culture specific antibiotics. May represent colonization rather than infection (6) Urinary retention due to benign prostatic hyperplasia: Code(s): N40.1 - Benign prostatic hyperplasia with lower urinary tract symptoms; R33.8 - Other retention of urine Status: Acute Assessment and Plan: Chronic indwelling Cintron. Continue Flomax Subjective Subjective Date/Time Seen: 11/24/23 09:34 Interval history: Feeling poorly today. Complains of suprapubic pain and pressure. No issues with Cintron catheter which is draining tea-colored urine. No nausea, vomiting, fever, or chills. Hemoglobin remaining stable. WBC within normal limits. Creatinine with slight increased to 1.9 today. Review of Systems Review of Systems: All systems reviewed & are unremarkable except as noted in HPI and below Exam Narrative: General: Awake, alert, comfortable, no acute distress HEENT: Normocephalic, atraumatic, sclerae anicteric Respiratory: Normal respiratory effort, no accessory muscle use Abdomen: Nondistended, soft, nontender : Cintron catheter draining tea-colored urine Skin: Normal coloration, warm and dry Neurologic: No focal neuro deficits noted Psychiatric: Appropriate mood and affect, judgment and insight intact Objective Data Vital Signs Vital Signs: Vital Signs - 24 hr 11/23/23 14:00 11/23/23 20:35 11/23/23 20:00 Temperature 97.6 F 98.4 F Pulse Rate 86 89 Respiratory Rate 20 16 Blood Pressure 106/46 L 104/61 Pulse Oximetry 93 95 Oxygen Delivery Room Air 11/24/23 04:48 Temperature 97.4 F L Pulse Rate 92 Respiratory Rate 16 Blood Pressure 122/50 L Pulse Oximetry 92 Oxygen Delivery Intake/Output Intake/Output: Intake & Output 11/21/23 11/22/23 11/23/23 11/24/23 23:59 23:59 23:59 23:59 Intake Total 1010 1250 828 Output Total 2940 3934 7627 550 [facility] [phone] Meds/Results Medications: Active Medications Generic Name Dose Route Start Last Admin Trade Name Freq PRN Reason Stop Dose Admin Acetaminophen 1,000 mg 11/21/23 15:13 11/24/23 08:27 Acetaminophen 500 Mg Tablet PO 1,000 mg Q6HR PRN Administration Mild Pain or Fever Alfuzosin HCl 10 mg 11/21/23 17:00 11/23/23 16:48 Alfuzosin 10 Mg Er Tablet PO 10 mg DAILY@1700 NICKI Administration Docusate Sodium 100 mg 11/22/23 08:00 11/23/23 08:25 Docusate Sodium 1
[2023-11-24 11:08] LABS: Glucose Point of Care 114 mg/dl (65-105)
--- NOTE | 2023-11-24 12:14 | PM.IMPN ---
Progress Note: A&P Assessment and Plan (1) Acute UTI: Code(s): N39.0 - Urinary tract infection, site not specified Status: Acute (2) [place] kidney injury: Code(s): N17.9 - Acute kidney failure, unspecified; N18.9 - Chronic kidney disease, unspecified Status: Acute (3) Normochromic normocytic anemia: Code(s): D64.9 - Anemia, unspecified Status: Acute (4) Diabetes mellitus: Code(s): E11.9 - Type 2 diabetes mellitus without complications Status: Acute (5) Bladder cancer: Code(s): C67.9 - Malignant neoplasm of bladder, unspecified Status: Acute Plan 88-year-old male with past medical history bladder cancer [facility]. He reported no active bleeding reported. He was transferred for transfusion. He denies any melena bright red blood per rectum lightheadedness shortness of breath chest pain or loss of consciousness. He is also not interested in any invasive interventions except for transfusion. His hemoglobin was noted to be 5.8 his baseline hemoglobin around. He got 2 units of packed red blood cell transfused. His hemoglobin is up and remains stable. CT abdomen pelvis showed moderate bilateral hydroureteronephrosis. Stones measuring up to 5 mm at the ureteral vesicular junction. Circumferential wall thickening of the urinary bladder likely cystitis. Poor visualization of the right distal ureter which may be due to inflammatory change not excluded. Nodules at the visualized lung bases which may be infectious or tree. Consider follow-up CT in 3 months. Urine culture growing Enterobacter.. Placed on ceftriaxone IV. Recent culture positive for Proteus which was resistant to ceftriaxone. Switched antibiotics to cefepime. Urine culture growing Enterobacter sensitive to cefepime. Levofloxacin is another option to oral to complete course. Acute on chronic anemia: Check FOBT. Ongoing hematuria reported on and off. H&H remains stable RODO: 1.8 baseline around 1.2. Hold ramipril and furosemide CK level normal. CT with hydro ureteral nephrosis. Cintron has been changed in the ED and draining well. Renal ultrasound with stable moderate right and mild left hydronephrosis. Urology planned for cystoscopy and possible stent placement today which he is agreeable for Obstructive uropathy: Follows with Dr. 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 Hospice enrollment and consultation will be implemented today. Subjective Date/time seen: 11/24/23 12:14 Interval history: No new complaint. He has opted to go on hospice. He does own a undergo repeated surgeries when he continues to bleed Review of Systems Review of Systems: All systems reviewed & are unremarkable except as noted in HPI and below Exam Narrative: General: Awake, alert, comfortable, no acute distress HEENT: Normocephalic, atraumatic, sclerae anicteric Respiratory: Normal respiratory effort, no accessory muscle use Abdomen: Nondistended, soft, nontender : Cintron catheter draining tea-colored urine Skin: Normal coloration, warm and dry Neurologic: No focal neuro deficits noted Psychiatric: Appropriate mood and affect, judgment and insight intact Objective Data Vital Signs Vital Signs: Vital Signs - 24 hr 11/23/23 14:00 11/23/23 20:35 11/23/23 20:00 Temperature 97.6 F 98.4 F Pulse Rate 86 89 Respiratory Rate 20 16 Blood Pressure 106/46 L 104/61 Pulse Oximetry 93 95 Oxygen Delivery Room Air 11/24/23 04:48 Temperature 97.4 F L Pulse Rate 92 Respiratory Rate 16 Blood Pressure 122/50 L Pulse Oximetry 92 Oxygen Delivery Intake/Output Intake
--- NOTE | 2023-11-24 12:58 | WPDANESEPPF ---
Anes - Initial Pre Proc Eval Procedure: Operation Date: 11/24/23 12:30 Proposed Procedures p Cystoscopy, Bilateral Retrograde Pyelogram, Possible Bilateral Stent Placement, Possible Right Ureteroscopy - Jerry Bui MD Date/Time: 11/24/23 12:58 Surgeon: Maryam Otero MD Pre Op Diagnosis: Anemia,UTI,RODO Patient Data Age: 88 Gender: M Height: 1.73 m Weight: 73.7 kg Last Vital Signs Temp 36.9 C 11/24/23 12:33 Pulse 82 11/24/23 12:33 Resp 20 11/24/23 12:33 BP 124/55 L 11/24/23 12:33 Pulse Ox 93 11/24/23 12:33 O2 Del Method Room Air 11/24/23 12:33 FiO2 21 11/23/23 08:40 Allergies Allergy/AdvReac Type Severity Reaction Status Date / Time No Known Allergies Allergy Verified 10/14/23 13:56 Home Medications Medication Instructions Recorded Confirmed Type alfuzosin 10 mg tablet,extended 10 mg PO HS 08/19/23 11/21/23 History release 24 hr aspirin 81 mg chewable tablet 81 mg PO DAILY 08/19/23 11/21/23 History (Aspirin Childrens) docusate sodium 100 mg capsule 100 mg PO DAILY 08/19/23 11/21/23 History gabapentin 100 mg capsule 100 mg PO DAILY 08/19/23 11/21/23 History glipizide 10 mg tablet, extended 10 mg PO DAILY 08/19/23 11/21/23 History release 24 hr nifedipine 30 mg tablet,extended 30 mg PO DAILY 08/19/23 11/21/23 History release ramipril 10 mg capsule 10 mg PO DAILY 08/19/23 11/21/23 History simvastatin 20 mg tablet 20 mg PO DAILY 08/19/23 11/21/23 History acetaminophen 1,000 mg PO Q6-12H pain 11/21/23 11/21/23 History furosemide 40 mg tablet 40 mg PO DAILY 11/21/23 11/21/23 History melatonin 3 mg PO HS 11/21/23 11/21/23 History tamsulosin 0.4 mg capsule 0.4 mg PO DAILY 11/21/23 11/21/23 History trazodone 50 mg tablet 50 mg PO HS 11/21/23 11/21/23 History Laboratory Tests 11/23/23 11/23/23 11/23/23 16:28 16:32 19:33 WBC RBC Hgb Hct MCV MCH MCHC RDW Plt Count MPV Immature Gran % (Auto) Neut % (Auto) Lymph % (Auto) [place] % (Auto) Eos % (Auto) Baso % (Auto) Lymph # (Auto) [place] # (Auto) Eos # (Auto) Baso # (Auto) Abs Immat Gran (auto) Absolute Neuts (auto) Absolute Nucleated RBC Nucleated RBC % Sodium Potassium Chloride Carbon Dioxide Anion Gap BUN Creatinine Estim Creat Clear Calc Estimated GFR Glucose POC Capillary Glucose 202 H mg/dl 203 H mg/dl (65-105) (65-105) Calcium Magnesium Total Bilirubin AST ALT Alkaline Phosphatase Total Protein Albumin Stl Occult Blood (IFOB) Negative (N) 11/24/23 11/24/23 11/24/23 06:22 07:32 11:04 WBC 7.3 K/mm3 (4.5-10.0) RBC 2.89 L M/mm3 (4.6-6.20) Hgb 8.0 L g/dL (14.0-18.0) Hct 26.1 L % (42.0-52.0) MCV 90.3 fl (80-100) MCH 27.7 pg (26-34) MCHC 30.7 L g/dl (32-36) RDW 15.9 H % (11.5-14.5) Plt Count 164 k/mm3 (150-375) MPV 9.8 fl (7.4-10.4) Immature Gran % (Auto) 0.4 % (0-0.5) Neut % (Auto) 81.4 H % (45.5-73.1) Lymph % (Auto) 9.3 L % (18.3-44.2) [place] % (Auto) 7.0 % (2.6-8.5) Eos % (Auto) 1.5 % (0-4.4) Baso % (Auto) 0.4 % (0.2-1.2) Lymph # (Auto) 0.68 L K/mm3 (0.9-3.2) [place] # (Auto) 0.5 K/mm3 (0.1-0.6) Eos # (Auto) 0.1 K/mm3 (0-0.3) Baso # (Auto) 0.0 K/mm3 (0.0-0.1) Abs Immat Gran (auto) 0.03 K/mm3 (0.00-0.031) Absolute [place]
[2023-11-24] MEDS: ceFAZolin 2 GM/D5W 50 ML 2 GM/50 ML BAG IVPB (13:40)
--- NOTE | 2023-11-24 13:46 | P.OP_ITS ---
Procedure Note - Detailed Date of Procedure 11/24/23 Pre-op Diagnosis Anemia,UTI,RODO, bilateral hydronephrosis Post-op Diagnosis Same Procedure Performed Cystoscopy with complex Cintron catheter placement Surgeon Jerry Bui MD Anesthesia General Findings Necrotic appearing trigonal area without ability to visualize ureteral orifice Description of Procedure Patient is taken to the operative suite correctly identified. Once anesthesia was obtained was placed in dorsal lithotomy position and prepped draped usual sterile fashion. Nineteen Dominican scope was inserted into the bladder. The prostate bladder neck area as friable and somewhat necrotic appearing upon entering the bladder a it is also somewhat necrotic along the trigonal area. Is difficult to get the bladder distended as it was bleeding. No ureteral orifice was visualized at this time. 2% viscous lidocaine was inserted into the urethra. Twenty [address] was placed and connected to continuous bladder irrigation. Patient is taken recovery stable condition. Decision will need to be made by the family and patient whether he wants to pursue bilateral nephrostomy tube placement. This completes dictation. Please send a copy to my office. Estimated Blood Loss 0 Drains Yes Packing No Pathology None sent Complications No immediate complications Condition Stable Disposition PACU
[2023-11-24] MEDS: CEFEPIME 1 GM/NS 50 ML 1 GM/50 ML BAG IVPB (13:53)
[2023-11-24] MEDS: fentaNYL CITRATE INJ (*CRX) 100 MCG/2 ML VIAL 25 MCG IV PUSH ×2 (14:07→14:13)
[2023-11-24] MEDS: LACTATED RINGERS 1,000 ML 30 ML IV CONT (15:01)
[2023-11-24 16:19] LABS: Glucose Point of Care 186 mg/dl (65-105)
[2023-11-24] MEDS: traMADol HCL (*CRX) 50 MG TABLET PO (17:11)
[2023-11-24] MEDS: MORPHINE SULFATE (*CRX) 2 MG/ML INJ 1 MG IV PUSH (19:09)
[2023-11-24] MEDS: LORazepam INJ (*CRX) 2 MG/ML VIAL 0.5 MG IV PUSH (20:26)
[2023-11-25 04:35] VITALS: BP 109/46; PULSE 95; RESP 16; TEMP 36.4; O2SAT 98
[2023-11-25 08:02] LABS: Glucose Point of Care 166 mg/dl (65-105)
[2023-11-25] MEDS: HYDROcodone/acetaminophen (*CRX) 5-325 MG TABLET 1 TAB PO (08:57)
--- NOTE | 2023-11-25 09:41 | WPDUROPN2 ---
Progress Note: A&P Assessment and Plan (1) Bilateral hydronephrosis: Code(s): N13.30 - Unspecified hydronephrosis Status: Acute Assessment and Plan: Worsened from baseline. Creatinine up to 1.9 He has a history of right ureteral stricture and right kidney contributes 20% renal function. He underwent cystoscopy in the operating room yesterday (11/24/23) and due to necrotic trigonal area, the ureteral orifice was not able to be visualized. Cintron catheter was placed. He is not interested in pursuing bilateral nephrostomy tubes. He has opted for hospice care and this is being arranged per primary team today. (2) Ureteral stone: Code(s): N20.1 - Calculus of ureter Status: Acute Assessment and Plan: Possible stone in the right distal ureter. Hard to delineate on CT scan. No further treatment/monitoring given his wishes for hospice. (3) History of bladder cancer: Code(s): Z85.51 - Personal history of malignant neoplasm of bladder Status: Acute Assessment and Plan: Status post radiation and chemotherapy. Last outpatient cystoscopy in October 2023 normal (4) Ureteral stricture, right: Code(s): N13.5 - Crossing vessel and stricture of ureter without hydronephrosis Status: Acute Assessment and Plan: Known chronic issue. (5) Asymptomatic bacteriuria: Code(s): R82.71 - Bacteriuria Status: Acute Assessment and Plan: Likely due to chronic indwelling catheter. Urine culture with growth of Enterobacter. He is on culture specific antibiotics. May represent colonization rather than infection (6) Urinary retention due to benign prostatic hyperplasia: Code(s): N40.1 - Benign prostatic hyperplasia with lower urinary tract symptoms; R33.8 - Other retention of urine Status: Acute Assessment and Plan: Chronic indwelling Cintron. Continue Flomax Subjective Subjective Date/Time Seen: 11/25/23 09:41 Interval history: Pankaj is resting comfortably in bed. Offers no complaints. Cintron catheter in place draining dark urine with tiny clots and sediment. Review of Systems Review of Systems: All systems reviewed & are unremarkable except as noted in HPI and below Exam Narrative: General: Awake, alert, comfortable, no acute distress HEENT: Normocephalic, atraumatic, sclerae anicteric Respiratory: Normal respiratory effort, no accessory muscle use Abdomen: Nondistended, soft, nontender : Cintron catheter draining dark urine with tiny clots Skin: Normal coloration, warm and dry Neurologic: No focal neuro deficits noted Psychiatric: Appropriate mood and affect, judgment and insight intact Objective Data Vital Signs Vital Signs: Vital Signs - 24 hr 11/24/23 12:33 11/24/23 13:53 11/24/23 14:10 Temperature 98.4 F 98.0 F Pulse Rate 82 87 87 Respiratory Rate 20 14 20 Blood Pressure 124/55 L 108/66 115/50 L Pulse Oximetry 93 98 98 Oxygen Delivery Room Air Simple Face Mask Room Air Oxygen Flow Rate 8 11/24/23 14:25 11/24/23 14:40 11/24/23 14:55 Temperature Pulse Rate 90 90 95 Respiratory Rate 16 16 20 Blood Pressure 113/57 L 116/63 118/64 Pulse Oximetry 95 94 94 Oxygen Delivery Room Air Room Air Room Air Oxygen Flow Rate 11/24/23 15:37 11/24/23 20:19 11/24/23 21:27 Temperature 96.9 F L 97.7 F Pulse Rate 87 94 Respiratory Rate 18 14 Blood Pressure 116/61 118/65 Pulse Oximetry 98 91 Oxygen Delivery Room Air Oxygen Flow Rate 11/25/23 04:35 Temperature 97.6 F Pulse Rate 95 Respiratory Rate 16 Blood Pressure 109/46 L Pulse Oximetry 98 Oxygen Delivery Oxygen Flow Rate Intake/Output Intake/Output: Intake & Output 11/22/23 11/23/23 11/24/23 11/25/23 23:59 23:59 23:59 23:59 Intake Total 1250 878 50 480 Output Total 1469 9306 850 550 Balance -215 -1622 -800 -70 Meds/Results Medications: Active Medications Generic Name Dose Route Star
--- NOTE | 2023-11-25 10:26 | PM.IMPN ---
Progress Note: A&P Assessment and Plan (1) Bilateral hydronephrosis: Code(s): N13.30 - Unspecified hydronephrosis <Meli Barton Student - Last Filed: 11/25/23 14:48> Status: Acute <Meli Barton Student - Last Filed: 11/25/23 14:48> Assessment and Plan: Patient presented for low hemoglobin and weakness. Denies flank or abdominal pain. CT a/p on presentation shows moderate bilateral hydrouteronephrosis Worsened from baseline. Urology consulted He has a history of right ureteral stricture and right kidney contributes 20% renal function. He underwent cystoscopy with urology team in the operating room yesterday (11/24/23) Salcedo catheter was placed He is not interested in pursuing bilateral nephrostomy tubes. He has opted for hospice care and this is being arranged today 11/24 <Meli Barton Student - Last Filed: 11/25/23 14:48> Patient presented for low hemoglobin and weakness. Denies flank or abdominal pain. CT a/p on presentation shows moderate bilateral hydrouteronephrosis Worsened from baseline. Urology consulted He has a history of right ureteral stricture and right kidney contributes 20% renal function. He underwent cystoscopy with urology team in the operating room yesterday (11/24/23) Salcedo catheter was placed He is not interested in pursuing bilateral nephrostomy tubes. He has opted for hospice care and this is being arranged today 11/24 <Jose Lr MD - Last Filed: 11/25/23 18:47> (2) Ureteral stone: Code(s): N20.1 - Calculus of ureter <Meli Barton Student - Last Filed: 11/25/23 14:48> Status: Acute <Meli Barton Student - Last Filed: 11/25/23 14:48> Assessment and Plan: Initial CT a/p showed a possible right ureteral stone up to 5mm at the urterovesicular junction Per urology, hard to delineate on CT scan. No further treatment/monitoring given his wishes for hospice Pain control <Meli Barton Student - Last Filed: 11/25/23 14:48> Initial CT a/p showed a possible right ureteral stone up to 5mm at the urterovesicular junction Per urology, hard to delineate on CT scan. Unable to remove with cystoscopy No further treatment/monitoring given his wishes for hospice Pain control <Jose Lr MD - Last Filed: 11/25/23 18:47> (3) Normochromic normocytic anemia: Code(s): D64.9 - Anemia, unspecified <Meli Barton Student - Last Filed: 11/25/23 14:48> Status: Acute <Meli Barton Student - Last Filed: 11/25/23 14:48> Assessment and Plan: Patient presents to hospital for a low hemoglobin found on outpatient labs No active bleeding reported. No lightheadedness, syncope, chest pain, or shortness of breath Hemoglobin on presentation was 5.8 (baseline around 11 per chart review) 2 units of packed RBC transfused Hemoglobin remains stable now <Meli Barton Student - Last Filed: 11/25/23 14:48> Patient presents to hospital for a low hemoglobin found on outpatient labs No active bleeding reported but does have hematuria. No lightheadedness, syncope, chest pain, or shortness of breath Hemoglobin on presentation was 5.8 (baseline around 11 per chart review) 2 units of packed RBC transfused Hemoglobin remains stable now but not checked today <Jose Lr MD - Last Filed: 11/25/23 18:47> (4) RODO (acute kidney injury): Code(s): N17.9 - Acute kidney failure, unspecified <Meli Barton Student - Last Filed: 11/25/23 14:48> Status: Acute <Meli Barton Student - Last Filed: 11/25/23 14:48> Assessment and Plan: Patient with Cr of 1.8 on arrival (baseline around 1.2) Held home ACEi and lasix CK level normal CT a/p shows hydroureteral nephrosis, lpost-renal RODO; renal ultrasound also shows bilateral hydronephrosis Salcedo was changed in the ED on arrival Complex salcedo catheter placed
[2023-11-25 14:10] VITALS: BP 119/62; PULSE 77; RESP 16; TEMP 36.3; O2SAT 95
--- NOTE | 2023-11-25 15:11 | WPDANESPN ---
Anes - Prog Note Post-Op Date/Time: 11/25/23 15:11 Cardiovascular status: normal Respiratory status: normal Airway patency: baseline Mental status: baseline Post-Op hydration status: normal Vital Signs: Last Vital Signs Temp 36.3 C L 11/25/23 14:10 Pulse 77 11/25/23 14:10 Resp 16 11/25/23 14:10 BP 119/62 11/25/23 14:10 Pulse Ox 95 11/25/23 14:10 O2 Del Method Room Air 11/24/23 21:27 O2 Flow Rate 8 11/24/23 13:53 FiO2 21 11/23/23 08:40 Pain Score (VAS): Patient asleep. No nonverbal signs present at this time. I/O: Intake & Output 11/24/23 11/25/23 11/25/23 23:59 07:59 15:59 Intake Total 960 Output Total 550 400 Balance -550 560 Laboratory Tests 11/24/23 06:22 11/24/23 06:22 11/24/23 11/25/23 16:11 07:45 POC Capillary Glucose 186 H 166 H Post-procedural complaints: none Patient Feedback: Patient satisfied with anesthetic care.
[2023-11-25 19:43] VITALS: BP 124/66; PULSE 91; RESP 16; TEMP 36.6; O2SAT 94
[2023-11-25] MEDS: LORazepam INJ (*CRX) 2 MG/ML VIAL 0.5 MG IV PUSH (20:10)
[2023-11-25] MEDS: MORPHINE SULFATE (*CRX) 2 MG/ML INJ 1 MG IV PUSH (21:52)
[2023-11-26 08:00] VITALS: BP 133/69; PULSE 52; RESP 18; TEMP 36.5; O2SAT 95
[2023-11-26] MEDS: ACETAMINOPHEN 500 MG TABLET 1000 MG PO (08:02)
[2023-11-26] MEDS: DOCUSATE SODIUM 100 MG CAPSULE PO (08:02)
[2023-11-26 08:11] LABS: Glucose Point of Care 126 mg/dl (65-105)
[2023-11-26] MEDS: levoFLOXacin 750 MG TABLET PO (12:34)
--- NOTE | 2023-11-26 14:55 | PM.DS ---
DS: Admitting Diagnosis Discharge Date 11/26/23 Admitting Diagnosis Anemia DS: Discharge Diagnosis Discharge Diagnosis (1) Bilateral hydronephrosis: Code(s): N13.30 - Unspecified hydronephrosis Status: Acute (2) Ureteral stone: Code(s): N20.1 - Calculus of ureter Status: Acute (3) Normochromic normocytic anemia: Code(s): D64.9 - Anemia, unspecified Status: Acute (4) TYREE (acute kidney injury): Code(s): N17.9 - Acute kidney failure, unspecified Status: Acute (5) Asymptomatic bacteriuria: Code(s): R82.71 - Bacteriuria Status: Acute (6) History of bladder cancer: Code(s): Z85.51 - Personal history of malignant neoplasm of bladder Status: Acute (7) Ureteral stricture, right: Code(s): N13.5 - Crossing vessel and stricture of ureter without hydronephrosis Status: Acute (8) Urinary retention due to benign prostatic hyperplasia: Code(s): N40.1 - Benign prostatic hyperplasia with lower urinary tract symptoms; R33.8 - Other retention of urine Status: Acute (9) Diabetes mellitus: Code(s): E11.9 - Type 2 diabetes mellitus without complications Status: Acute DS: Summary Hospital Course Reason for hospitalization: 88 year old male with PMHx of bladder cancer, colon cancer, BPH, CKD, T2DM, and HTN presents for anemia.?Please see H&P for details. Hospital Course: Patient presented for low hemoglobin and weakness. CT abd/pelvis on presentation shows possible right ureteral stone up to 5mm at the urterovesicular junction and moderate bilateral hydrouteronephrosis that was worsened from baseline. Urology consulted. He has a history of right ureteral stricture and right kidney contributes 20% renal function. He underwent cystoscopy with urology team in the operating room 11/24/23 showing necrotic appearing trigonal area without ability to visualize ureteral orifice. Cintron was changed in the ED on arrival and a complex Cintron catheter placed in OR by urology. Patient presented to hospital for a low hemoglobin found on outpatient labs. No active bleeding reported but does have hematuria. Hemoglobin on presentation was 5.8 (baseline around 11 per chart review) and he was transfused 2 units of packed RBC. Hemoglobin increased and remained stable on re-check. He also has Tyree with Cr up to 1.9. Patient with no urinary symptoms. UA shows 1+ leukocyte esterase, 51-100 WBCs, and 2+ bacteria. Likely due to chronic indwelling catheter.?Initially placed on ceftriaxone. Switched antibiotics to cefepime the Levaquin. Urine culture with growth of Enterobacter. May represent colonization rather than infection but completed 5 days of treatment. The patient was not interested in pursuing bilateral nephrostomy tubes or other treatment.?He has opted for hospice care and this was arranged. He was able to be discharged on 11/25 to hospice care. Family aware and are supportive of his decision. Status at Discharge Cognitive/behavioral status at discharge: stable Time Spent with Patient Time attestation: Total time spent providing and/or coordinating discharge services: 35 minutes Time spent: Greater than 30 minutes Exam Narrative: AF 97.7 133/69 52 18 95% ra Gen - NARD Chest - Clear anteriorly, nml RR CV - RRR S1/S2 Abd - Soft, NT/ND, Positive BS - Cintron secured draiing pink red colored urine Ext - No pedal edema Psych - Nml mood and affect Skin - Warm and dry DS: Data Data Completed and Pending Labs on day of discharge: Labs from last 24 hours 11/26/23 07:55 POC Capillary Glucose 126 H Discharge Plan Discharge Attending physician on discharge: Jose Lr Consulting providers: Trav Dumont Discharging Clinician: Jose Lr Anticipated Discharge Date/Time: 11/26/23 15:06 Patient Disposition: Home, Self-Care Activity: as tolerated Diet: as tolerated Discharge Instr
[2023-11-26] MEDS: MORPHINE SULFATE (*CRX) 2 MG/ML INJ 1 MG IV PUSH (15:49)
--- NOTE | 2023-12-17 13:30 | WPDHPUPDATE1 ---
History and Physical Update Update Date/Time: 12/17/23 13:30 History and Physical has been reviewed, including an updated exam of the patient. There are NO changes in the patient's condition. Risks, benefits, and alternatives have been discussed and questions answered. Patient agrees to proceed with procedure.
== END 2023-11-26 16:05 | disposition hospice, home (50) | DRG 699 ==
LOC: ANHED 22:43 → ANH3MEDSUR 23:47
PROVIDERS: Emergency Medicine; Internal Medicine; Urology; Admitting Provider Internal Medicine; Emergency Provider Preventive Medicine Aerospace Medicine; PCP Internal Medicine; Visit Provider Internal Medicine
PROC: 0T9B80Z Drainage of Bladder with Drainage Device, Via Natural or Artificial Opening Endoscopic (ICD-10-PCS; CPT 52352; principal; 2023-11-24 12:30)
DX: T83.511A Infection and inflammatory reaction due to indwelling urethral catheter, initial encounter (principal); E87.1 Hypo-osmolality and hyponatremia; N13.6 Pyonephrosis; N30.41 Irradiation cystitis with hematuria; N17.9 Acute kidney failure, unspecified; N99.114 Postprocedural urethral stricture, male, unspecified; R82.71 Bacteriuria; B96.89 Other specified bacterial agents as the cause of diseases classified elsewhere; E11.22 Type 2 diabetes mellitus with diabetic chronic kidney disease; I12.9 Hypertensive chronic kidney disease with stage 1 through stage 4 chronic kidney disease, or unspecified chronic kidney disease; D64.9 Anemia, unspecified; R91.8 Other nonspecific abnormal finding of lung field; N40.1 Benign prostatic hyperplasia with lower urinary tract symptoms; R31.0 Gross hematuria; R33.8 Other retention of urine; Z66 Do not resuscitate; Z85.51 Personal history of malignant neoplasm of bladder; Z79.82 Long term (current) use of aspirin; I25.2 Old myocardial infarction; Z87.891 Personal history of nicotine dependence; Z85.038 Personal history of other malignant neoplasm of large intestine
CPT/HCPCS: 36415; 36430; 74177; 76775; 80048; 80053; 81001; 82274; 82550; 82607; 82728; 82746; 82948; 83540; 83550; 83735; 85014; 85018; 85025; 85046; 85610; 85730; 86850; 86900; 86901; 86923; 87077; 87086; 87088; 87186; 96361; 96365; 96375; 99285; A9270; C1769; G0378; J0690; J0692; J0696; J2060; J2270; J2704; J3010; J7050; J7120; P9016; Q9967